=== PATIENT | female | born 1980 ===

== ENCOUNTER 2020-08-01 19:23 | Outpatient (CLI) | payer MEDICAID ==
[2020-08-01 20:11] VITALS: BP 126/64
[2020-08-01] MEDS ORDERED: BETAMET ACET/BETAMET NA PH 6 MG/ML INJ 5 ML MDV IM ONE (21:00)
== END 2020-08-01 20:40 | disposition home or self-care (01) ==
LOC: TRG 19:23 → APU 19:50 → TRG 20:40
PROVIDERS: ATTEND Obstetrics & Gynecology
DX: O47.02 False labor before 37 completed weeks of gestation, second trimester (principal); Z3A.26 26 weeks gestation of pregnancy
CPT/HCPCS: 59025; 96372; J0702

== ENCOUNTER 2020-08-02 20:04 | Outpatient (CLI) | payer MEDICAID ==
[2020-08-02 20:24] VITALS: BP 128/60
[2020-08-02] MEDS ORDERED: BETAMET ACET/BETAMET NA PH 6 MG/ML INJ 5 ML MDV IM ONE (20:45)
== END 2020-08-02 20:32 | disposition home or self-care (01) ==
LOC: TRG 20:04 → APU 20:07 → TRG 20:32
PROVIDERS: ATTEND Obstetrics & Gynecology
DX: O47.02 False labor before 37 completed weeks of gestation, second trimester (principal); Z3A.26 26 weeks gestation of pregnancy
CPT/HCPCS: 59025; 96372; J0702

== ENCOUNTER 2022-04-08 14:10 | Inpatient (IN) | payer MEDICAID ==
[2022-04-08 16:17] LABS: Mucus,Urine FEW /HPF; WBC,Urine < 1.0 /HPF (0.0-6.0)
[2022-04-08 17:03] LABS: Color,Urine Straw (Yellow)
[2022-04-08] MEDS ORDERED: ACETAMINOPHEN 325 MG TAB PO PRN (20:44)
[2022-04-08] MEDS ORDERED: DOCUSATE SODIUM 100 MG CAP PO PRN (20:44)
[2022-04-08] MEDS ORDERED: ZOLPIDEM 5 MG TAB PO PRN (20:51)
[2022-04-08] MEDS ORDERED: BUTORPHANOL 2 MG/1 ML INJ IV PRN (20:51)
[2022-04-08] MEDS: AMPICILLIN/NS 2 GM/100 ML 2 GM/100 ML BAG IV SCH (21:44)
[2022-04-08] MEDS: LACTATED RINGERS 1,000 ML IV SCH (21:45)
[2022-04-09] MEDS: ERYTHROMYCIN LACTOBIONATE 250 MG in SODIUM CHLORIDE 0.9% 100 ML IV SCH ×4 (02:16→20:53)
[2022-04-09] MEDS: AMPICILLIN/NS 2 GM/100 ML 2 GM/100 ML BAG IV SCH ×4 (04:17→21:58)
--- NOTE | 2022-04-09 07:53 | History and Physical Report ---
History of Present Illness Date of examination: 04/09/22 Date of admission: 04/08/22 20:45 Chief complaint: "I think I have been leaking" History of present illness: Pt is a 42 year old female CANDICE 08/18/22 at 21w2d who presents with leakage of fluid since "Thursday or Thursday" April 04 or . She has a history of PPROM and x 2, with Renetta ordered but not yet initiated. She had an ultrasound at [facility] on 04/01/22 where she was noted to have funneling and a cervical length of 1.58 cm, subsequent transvaginal ultrasound that revealed no cervical length, and speculum exam with cervix 2-3 cm dilated with bulging membranes. The patient then underwent rescue cerclage on 04/02/22. She has had care at [facility] since 12 wks with comanagement by [facility] secondary to morbid obesity, h/o PPROM and delivery x 2, advanced maternal age, previous x 3, newly diagnosed gestational diabetes, h/o gastric sleeve, intermediate allele for fragile x syndrome, and desires tubal ligation, consent signed 04/08/22. Her GBS status is unknown. ROM plus testing was positive when she was evaluated in triage and she was started on latency antibiotics. Past History Past Medical History: diabetes (gestational diabetes, recently diagnosed ), other (morbid obesity ) Past Surgical History: cholecystectomy, gastric bypass, section (x 3), D&C Social history: no significant social history - Obstetrical History Expected Date of Delivery: 08/18/22 Actual Gestation: 21 Week(s) 2 Day(s) : 6 Para: 4 Hx # Term Pregnancies: 2 Number of Pregnancies: 2 Spontaneous Abortions: 1 Induced : 0 Number of Living Children: 4 Medications and Allergies Allergies Allergy/AdvReac Type Severity Reaction Status Date / Time No Known Allergies Allergy Unverified 08/01/20 20:11 Home Medications Medication Instructions Recorded Confirmed Last Taken Type Vit-Fe Fumar-FA [ 1 tab PO DAILY 10/20/20 10/20/20 Unknown History Vitamin] Ibuprofen [Motrin] 800 mg PO Q8HR PRN #60 tablet 10/22/20 Unknown Rx oxyCODONE /ACETAMINOPHEN [Percocet 1 tab PO Q6HR PRN #30 tablet 10/22/20 Unknown Rx 5/325] Active Meds: Active Medications Acetaminophen (Acetaminophen 325 Mg Tab) 650 mg PO Q4H PRN PRN Reason: Pain MILD(1-3)/Fever >100.5/WU Butorphanol Tartrate (Butorphanol 2 Mg/1 Ml Inj) 1 mg IV Q2H PRN PRN Reason: Labor Pain Docusate Sodium (Docusate Sodium 100 Mg Cap) 100 mg PO Q12H PRN PRN Reason: Constipation Lactated Ringer's (Lactated Ringers) 1,000 mls @ 125 mls/hr IV DIRECT JONATHAN Last Admin: 04/08/22 21:45 Dose: 125 mls/hr Erythromycin Lactobionate 250 (mg/ Sodium Chloride) 100 mls @ 100 mls/hr IV Q6H JONATHAN; Protocol Stop: 04/10/22 20:59 Last Admin: 04/09/22 02:16 Dose: 100 mls/hr Ampicillin Sodium (Ampicillin/Ns 2 Gm/100 Ml) 2 gm in 100 mls @ 100 mls/hr IV Q6H JONATHAN; Protocol Stop: 04/10/22 15:59 Last Admin: 04/09/22 04:17 Dose: 100 mls/hr Multivitamins/Iron/Calcium ( Wze00-Cx Fumarate-Folic Acid Vit Tab) 1 each PO QDAY JONATHAN Zolpidem Tartrate (Zolpidem 5 Mg Tab) 5 mg PO QHS PRN PRN Reason: Sleep Review of Systems All systems: negative - Vital Signs Vital signs: Vital Signs Pulse Pulse Ox 87 98 04/08/22 14:49 04/08/22 14:49 Temp Pulse Resp BP Pulse Ox 98.1 F 98 H 14 115/55 97 04/09/22 06:31 04/09/22 07:45 04/09/22 06:31 04/09/22 06:31 04/09/22 07:45 - Physical Exam Breasts: Positive: deferred Abdomen: Positive: soft (obese, gravid ) Uterus: Positive: enlarged (gravid ) Extremities: Positive: normal Results Abnormal lab results 04/08/22 Range/Units Unknown Membranes Rupture Positive A (Negative) All other labs normal. Assessment and Plan A: IUP at 21w2d PPROM since 04/04 or 04/05, on latency antibiotics Rescue Cerclage in place, placed 04/02/22 AMA Morbid Obesity h/o PPROM and delivery Previous x 3 h/o gastric sleeve Intermediate allele for fragile x syndrome Desires tubal ligation, consent signed 04/08/22. GBS status unknown P: Admit for observation IV antibiotics for latency Q shift FHTs MFM consult
[2022-04-09] MEDS: PRENATAL VIT27-FE FUMARATE-FOLIC ACID VIT TAB PO SCH (09:52)
[2022-04-09 16:18] LABS: Hematocrit 34.2 % (30.3-42.9); Hemoglobin 11.4 gm/dl (10.1-14.3); Mean Corpuscular HGB Conc 33 % (30-34); Mean Corpuscular Volume 94 fl (79-97); Platelet Count 232 K/mm3 (140-440); Red Blood Count 3.64 M/mm3 (3.65-5.03); Red Cell Distribution Width 14.2 % (13.2-15.2)
--- NOTE | 2022-04-09 17:52 | Consultation ---
History of Present Illness Consult date: 04/09/22 Reason for consult: PROM History of present illness: 42YO EGA 21w3d admitted S/P SROM in the setting of a cervical incompetence with rescue cerclage last week. She presents without complaints. She denies any fever, chills, contractions, odor, abdominal tenderness, or cramping pains. She reports good activity. She was recently diagnosed with GDM. Limited fingersticks show good control She has a history of X 3. Past History Past Medical History: diabetes (gestational diabetes, recently diagnosed ), other (morbid obesity ) Past Surgical History: cholecystectomy, gastric bypass, section (x 3), D&C - Obstetrical History : 7 Hx # Term Pregnancies: 2 Number of Pregnancies: 2 Spontaneous Abortions: 2 Number of Living Children: 4 Medications and Allergies Allergies Allergy/AdvReac Type Severity Reaction Status Date / Time No Known Allergies Allergy Unverified 08/01/20 20:11 Home Medications Medication Instructions Recorded Confirmed Last Taken Type Vit-Fe Fumar-FA [ 1 tab PO DAILY 10/20/20 10/20/20 Unknown History Vitamin] Ibuprofen [Motrin] 800 mg PO Q8HR PRN #60 tablet 10/22/20 Unknown Rx oxyCODONE /ACETAMINOPHEN [Percocet 1 tab PO Q6HR PRN #30 tablet 10/22/20 Unknown Rx 5/325] Active Meds: Active Medications Acetaminophen (Acetaminophen 325 Mg Tab) 650 mg PO Q4H PRN PRN Reason: Pain MILD(1-3)/Fever >100.5/WU Butorphanol Tartrate (Butorphanol 2 Mg/1 Ml Inj) 1 mg IV Q2H PRN PRN Reason: Labor Pain Docusate Sodium (Docusate Sodium 100 Mg Cap) 100 mg PO Q12H PRN PRN Reason: Constipation Lactated Ringer's (Lactated Ringers) 1,000 mls @ 125 mls/hr IV DIRECT JONATHAN Last Admin: 04/08/22 21:45 Dose: 125 mls/hr Erythromycin Lactobionate 250 (mg/ Sodium Chloride) 100 mls @ 100 mls/hr IV Q6H JONATHAN; Protocol Stop: 04/10/22 20:59 Last Admin: 04/09/22 14:38 Dose: 100 mls/hr Ampicillin Sodium (Ampicillin/Ns 2 Gm/100 Ml) 2 gm in 100 mls @ 100 mls/hr IV Q6H [facility]; Protocol Stop: 04/10/22 15:59 Last Admin: 04/09/22 15:47 Dose: 100 mls/hr Multivitamins/Iron/Calcium ( Oii43-Ge Fumarate-Folic Acid Vit Tab) 1 each PO QDAY JONATHAN Last Admin: 04/09/22 09:52 Dose: 1 each Zolpidem Tartrate (Zolpidem 5 Mg Tab) 5 mg PO QHS PRN PRN Reason: Sleep Review of Systems All systems: negative - Vital Signs Vital signs: Vital Signs Pulse Pulse Ox 87 98 04/08/22 14:49 04/08/22 14:49 Temp Pulse Resp BP Pulse Ox 98.1 F 79 14 110/56 96 04/09/22 06:31 04/09/22 17:49 04/09/22 06:31 04/09/22 12:08 04/09/22 17:49 Results Result Diagrams: 04/09/22 15:51 Abnormal lab results 04/09/22 Range/Units 15:51 RBC 3.64 L (3.65-5.03) M/mm3 All other labs normal. Assessment and Plan IMPRESSIONS: 1. IUP 21w3d 2. SROM 3. Failed rescue cerclage 4. Recent diagnosis of GDM 5. AMA - NIPT resulted low risk 6. Morbid obesity 7. Previous X 3 - No previa 8. Interested in option of outpatient surveillance until 23-24 weeks 9. On latency antibiotics RECOMMENDATIONS: 1. I agree with present management 2. IV antibiotics X 48 hrs, followed by PO to complete 1 week course 3. If patient desires outpatient surveillance, she should have weekly [facility] follow-up and perform daily temp checks 4. Monitor fingerstick BS as FBS, 2-hr PP, and HS 5. Obtain nutritional consult and diabetic education 6. Allow cerclage to remain in situ unless indications for removal 7. BMZ @ 24 weeks, with MgSO4 8. Deliver at 34 weeks, or for usual indications 9. BPP 1-2 times weekly at 24 weeks, with growth q 3-4 weeks 10. Follow-up cultures/lab results 11. [facility] will follow-up as requested
[2022-04-10] MEDS: ERYTHROMYCIN LACTOBIONATE 250 MG in SODIUM CHLORIDE 0.9% 100 ML IV SCH ×4 (02:19→20:18)
[2022-04-10] MEDS: AMPICILLIN/NS 2 GM/100 ML 2 GM/100 ML BAG IV SCH ×3 (03:29→15:49)
--- NOTE | 2022-04-10 08:01 | Progress Note ---
Assessment and Plan - Patient Problems (1) premature rupture of membranes Current Visit: Yes Status: Acute Plan to address problem: Patient's IV antibiotics were initiated on the at approximately 2100 Will continue antibiotics for 48 hours Plan discharge in a.m. on p.o. antibiotics Subjective - Subjective Date of service: 04/10/22 Interval history: 42-year-old -2-2-4 at 21+4 weeks admitted for PPROM with a cerclage in place. The patient has remained afebrile. Plan of care is to complete 48 hours of IV antibiotics and transition to p.o. antibiotics. She currently denies any vaginal bleeding or contractions. Patient reports: loss of fluid, no new complaints, no vaginal bleeding Objective - Vital Signs Vital Signs: Vital Signs - 12hr 04/09/22 04/09/22 04/09/22 20:01 20:06 20:11 Temperature Pulse Rate 80 81 79 Respiratory Rate Blood Pressure Blood Pressure [Left] O2 Sat by Pulse 97 97 97 Oximetry 04/09/22 04/09/22 04/09/22 20:16 20:21 20:26 Temperature Pulse Rate 91 H 78 82 Respiratory Rate Blood Pressure Blood Pressure [Left] O2 Sat by Pulse 98 97 96 Oximetry 04/09/22 04/09/22 04/09/22 20:31 20:36 20:52 Temperature Pulse Rate 83 84 95 H Respiratory Rate Blood Pressure Blood Pressure [Left] O2 Sat by Pulse 97 97 98 Oximetry 04/09/22 04/09/22 04/09/22 20:57 21:02 21:07 Temperature Pulse Rate 100 H 91 H 79 Respiratory Rate Blood Pressure Blood Pressure [Left] O2 Sat by Pulse 97 96 97 Oximetry 04/09/22 04/09/22 04/09/22 21:12 21:17 21:22 Temperature Pulse Rate 79 81 92 H Respiratory Rate Blood Pressure Blood Pressure [Left] O2 Sat by Pulse 96 98 96 Oximetry 04/09/22 04/09/22 04/09/22 21:27 21:32 21:37 Temperature Pulse Rate 79 91 H 76 Respiratory Rate Blood Pressure Blood Pressure [Left] O2 Sat by Pulse 96 95 96 Oximetry 04/09/22 04/09/22 04/09/22 21:42 21:47 21:52 Temperature Pulse Rate 78 73 78 Respiratory Rate Blood Pressure Blood Pressure [Left] O2 Sat by Pulse 96 97 96 Oximetry 04/09/22 04/09/22 04/09/22 21:57 22:02 22:07 Temperature Pulse Rate 94 H 96 H 87 Respiratory Rate Blood Pressure Blood Pressure [Left] O2 Sat by Pulse 97 97 97 Oximetry 04/09/22 04/09/22 04/09/22 22:13 22:17 22:23 Temperature Pulse Rate 100 H 84 83 Respiratory Rate Blood Pressure Blood Pressure [Left] O2 Sat by Pulse 97 96 96 Oximetry 04/09/22 04/09/22 04/09/22 22:27 22:32 22:38 Temperature Pulse Rate 81 82 94 H Respiratory Rate Blood Pressure Blood Pressure [Left] O2 Sat by Pulse 96 97 98 Oximetry 04/09/22 04/09/22 04/09/22 22:43 22:47 22:52 Temperature Pulse Rate 75 75 76 Respiratory Rate Blood Pressure Blood Pressure [Left] O2 Sat by Pulse 95 98 96 Oximetry 04/09/22 04/09/22 04/09/22 22:58 23:06 23:10 Temperature Pulse Rate 100 H 88 78 Respiratory Rate Blood Pressure Blood Pressure [Left] O2 Sat by Pulse 97 96 96 Oximetry 04/09/22 04/09/22 04/09/22 23:16 23:21 23:26 Temperature Pulse Rate 80 94 H 79 Respiratory Rate Blood Pressure Blood Pressure [Left] O2 Sat by Pulse 97 98 97 Oximetry 04/09/22 04/09/22 04/09/22 23:29 23:30 23:31 Temperature 97.8 F Pulse Rate 97 H 86 81 Respiratory 14 Rate Blood Pressure 102/55 Blood Pressure 102/55 [Left] O2 Sat by Pulse 98 98 Oximetry 04/09/22 04/09/22 04/09/22 23:36 23:41 23:45 Temperature Pulse Rate 81 82 77 Respiratory Rate Blood Pressure Blood Pressure [Left] O2 Sat by Pulse 97 96 96 Oximetry 04/09/22 04/09/22 04/10/22 23:51 23:55 00:01 Temperature Pulse Rate 88 85 71 Respiratory Rate Blood Pressure Blood Pressure [Left] O2 Sat by Pulse 96 96 95 Oximetry 04/10/22 04/10/22 04/10/22 00:06 00:11 00:16 Temperature Pulse Rate 70 81 80 Respiratory Rate Blood Pressure Blood Pressure [Left] O2 Sat by Pulse 96 93 95 Oximetry 04/10/22 04/10/22 04/10/22 00:21 00:26 00:31 Temperature Pulse Rate 80 79 84 Respiratory Rate Blood Pressure Blood Pressure [Left] O2 Sat by Pulse 94 95 93 Oximetry 04/10/22 04/10/22 04/10/22 00:36 00:41 00:46 Temperature Pulse Rate 77 75 81 Respiratory Rate Blood Pressure Blood Pressure [Left] O2 Sat by Pulse 96 96 95 Oximetry 04/10/22 04/10/22 04/10/22 00:50 00:58 01:03 Temperature Pulse Rate 78 101 H 68 Respiratory Rate Blood Pressure Blood Pressure [Left] O2 Sat by Pulse 96 97 96 Oximetry 04/10/22 04/10/22 04/10/22 01:08 01:13 01:18 Temperature Pulse Rate 66 70 68 Respiratory Rate Blood Pressure Blood Pressure [Left] O2 Sat by Pulse 96 96 96 Oximetry 04/10/22 04/10/22 04/10/22 01:23 01:28 01:33 Temperature Pulse Rate 68 71 73 Respiratory Rate Blood Pressure Blood Pressure [Left] O2 Sat by Pulse 96 96 96 Oximetry 04/10/22 04/10/22 04/10/22 01:38 01:43 01:48 Temperature Pulse Rate 72 71 99 H Respiratory Rate Blood Pressure Blood Pressure [Left] O2 Sat by Pulse 96 96 96 Oximetry 04/10/22 04/10/22 04/10/22 01:53 01:58 02:03 Temperature Pulse Rate 68 68 71 Respiratory Rate Blood Pressure Blood Pressure [Left] O2 Sat by Pulse 96 96 96 Oximetry 04/10/22 04/10/22 04/10/22 02:08 02:13 02:18 Temperature Pulse Rate 72 71 78 Respiratory Rate Blood Pressure Blood Pressure [Left] O2 Sat by Pulse 96 96 96 Oximetry 04/10/22 04/10/22 04/10/22 02:23 02:28 02:33 Temperature Pulse Rate 81 79 76 Respiratory Rate Blood Pressure Blood Pressure [Left] O2 Sat by Pulse 97 97 97 Oximetry 04/10/22 04/10/22 04/10/22 02:38 02:43 02:48 Temperature Pulse Rate 70 74 73 Respiratory Rate Blood Pressure Blood Pressure [Left] O2 Sat by Pulse 97 96 96 Oximetry 04/10/22 04/10/22 04/10/22 02:53 02:58 03:03 Temperature Pulse Rate 72 74 73 Respiratory Rate Blood Pressure Blood Pressure [Left] O2 Sat by Pulse 96 96 97 Oximetry 04/10/22 04/10/22 04/10/22 03:08 03:13 03:18 Temperature Pulse Rate 70 68 73 Respiratory Rate Blood Pressure Blood Pressure [Left] O2 Sat by Pulse 96 97 97 Oximetry 04/10/22 04/10/22 04/10/22 03:23 03:28 03:30 Temperature 97.5 F L Pulse Rate 71 88 93 H Respiratory 14 Rate Blood Pressure Blood Pressure 116/66 [Left] O2 Sat by Pulse 97 98 98 Oximetry 04/10/22 04/10/22 04/10/22 03:32 03:33 03:38 Temperature Pulse Rate 86 80 82 Respiratory Rate Blood Pressure 116/66 Blood Pressure [Left] O2 Sat by Pulse 99 99 Oximetry 04/10/22 04/10/22 04/10/22 03:43 03:48 03:58 Temperature Pulse Rate 85 87 95 H Respiratory Rate Blood Pressure Blood Pressure [Left] O2 Sat by Pulse 98 98 97 Oximetry 04/10/22 04/10/22 04/10/22 04:03 04:08 04:13 Temperature Pulse Rate 78 78 94 H Respiratory Rate Blood Pressure Blood Pressure [Left] O2 Sat by Pulse 97 97 95 Oximetry 04/10/22 04/10/22 04/10/22 04:18 04:23 04:28 Temperature Pulse Rate 75 80 73 Respiratory Rate Blood Pressure Blood Pressure [Left] O2 Sat by Pulse 96 97 97 Oximetry 04/10/22 04/10/22 04/10/22 04:33 04:38 04:43 Temperature Pulse Rate 72 79 78 Respiratory Rate Blood Pressure Blood Pressure [Left] O2 Sat by Pulse 97 96 96 Oximetry 04/10/22 04/10/22 04/10/22 04:48 04:53 04:58 Temperature Pulse Rate 72 71 79 Respiratory Rate Blood Pressure Blood Pressure [Left] O2 Sat by Pulse 95 95 91 Oximetry 04/10/22 04/10/22 04/10/22 05:03 05:08 05:13 Temperature Pulse Rate 69 76 84 Respiratory Rate Blood Pressure Blood Pressure [Left] O2 Sat by Pulse 98 95 99 Oximetry 04/10/22 04/10/22 04/10/22 05:18 05:23 05:28 Temperature Pulse Rate 78 79 74 Respiratory Rate Blood Pressure Blood Pressure [Left] O2 Sat by Pulse 98 97 98 Oximetry 04/10/22 04/10/22 04/10/22 05:33 05:38 05:43 Temperature Pulse Rate 73 73 72 Respiratory Rate Blood Pressure Blood Pressure [Left] O2 Sat by Pulse 97 96 96 Oximetry 04/10/22 04/10/22 04/10/22 05:48 05:53 05:58 Temperature Pulse Rate 79 72 82 Respiratory Rate Blood Pressure Blood Pressure [Left] O2 Sat by Pulse 97 97 97 Oximetry 04/10/22 04/10/22 04/10/22 06:03 06:08 06:13 Temperature Pulse Rate 90 71 97 H Respiratory Rate Blood Pressure Blood Pressure [Left] O2 Sat by Pulse 97 96 96 Oximetry 04/10/22 04/10/22 04/10/22 06:15 06:16 06:18 Temperature 97.6 F Pulse Rate 88 86 91 H Respiratory 16 Rate Blood Pressure 109/68 Blood Pressure 109/68 [Left] O2 Sat by Pulse 98 98 Oximetry 04/10/22 04/10/22 04/10/22 06:23 06:28 06:33 Temperature Pulse Rate 78 75 75 Respiratory Rate Blood Pressure Blood Pressure [Left] O2 Sat by Pulse 97 97 97 Oximetry 04/10/22 04/10/22 04/10/22 06:38 06:43 06:48 Temperature Pulse Rate 73 72 82 Respiratory Rate Blood Pressure Blood Pressure [Left] O2 Sat by Pulse 96 96 97 Oximetry 04/10/22 04/10/22 04/10/22 06:53 06:58 07:03 Temperature Pulse Rate 80 84 90 Respiratory Rate Blood Pressure Blood Pressure [Left] O2 Sat by Pulse 97 99 97 Oximetry 04/10/22 04/10/22 07:08 07:13 Temperature Pulse Rate 79 89 Respiratory Rate Blood Pressure Blood Pressure [Left] O2 Sat by Pulse 97 99 Oximetry - Labs Labs: Abnormal Labs 04/08/22 04/09/22 Unknown 15:51 RBC 3.64 L Membranes Rupture Positive A Laboratory Results - last 24 hr 04/09/22 04/09/22 04/09/22 11:03 12:10 14:52 WBC RBC Hgb Hct MCV MCH MCHC RDW Plt Count POC Glucose 81 89 SARS-CoV-2 (PCR) Negative Blood Type Antibody Screen 04/09/22 04/09/22 04/09/22 15:40 15:51 19:33 WBC 9.8 RBC 3.64 L Hgb 11.4 Hct 34.2 MCV 94 MCH 31 MCHC 33 RDW 14.2 Plt Count 232 POC Glucose 103 SARS-CoV-2 (PCR) Blood Type O POSITIVE Antibody Screen Negative 04/10/22 06:14 WBC RBC Hgb Hct MCV MCH MCHC RDW Plt Count POC Glucose 94 SARS-CoV-2 (PCR) Blood Type Antibody Screen
[2022-04-10] MEDS: PRENATAL VIT27-FE FUMARATE-FOLIC ACID VIT TAB PO SCH (12:03)
--- NOTE | 2022-04-10 23:18 | Ultrasound Report ---
Limited OB ultrasound INDICATION: Premature rupture FINDINGS: Single live anterior in breech position. SANDI measures 9.6 cm. Placenta is anterio r grade 1. heart rate is 1 41 bpm. There is a complex which extends into the region of the cerv ix. IMPRESSION: Single live intrauterine in breech position. There is a foot which extends into the cervix with cervical length measuring 0 cm. Fluid signal is seen within the cervical canal measuring 2.1 cm. Signer Name: Romeo Guy MD Signed: 04/10/2022 11:13 PM Workstation Name: [id number]
[2022-04-11] MEDS: LACTATED RINGERS 1,000 ML IV SCH (05:52)
--- NOTE | 2022-04-11 07:56 | Progress Note ---
Assessment and Plan - Patient Problems (1) premature rupture of membranes Current Visit: Yes Status: Acute Plan to address problem: clinically stable discharge home Subjective - Subjective Date of service: 04/11/22 Interval history: 42-year-old -2-2-4 at 21+5 weeks admitted for PPROM with a cerclage in place. Patient is without complaints. She denies any vaginal bleeding or contractions. She has completed her IV antibiotic regimen Patient reports: loss of fluid, no new complaints, no vaginal bleeding Objective - Vital Signs Vital Signs: Vital Signs - 12hr 04/10/22 04/10/22 04/10/22 20:13 20:14 20:17 Temperature 98.1 F Pulse Rate 78 84 Respiratory 14 Rate Blood Pressure 111/71 Blood Pressure 111/71 [Left] O2 Sat by Pulse 98 98 Oximetry O2 Sat by Pulse 98 Oximetry [ Bilateral] 04/11/22 04/11/22 04/11/22 04:07 04:08 04:09 Temperature 97.7 F Pulse Rate 90 87 83 Respiratory 16 Rate Blood Pressure 109/57 Blood Pressure [Left] O2 Sat by Pulse 99 97 Oximetry O2 Sat by Pulse Oximetry [ Bilateral] - Labs Labs: Abnormal Labs 04/08/22 04/09/22 04/10/22 Unknown 15:51 10:51 RBC 3.64 L POC Glucose 116 H Membranes Rupture Positive A Laboratory Results - last 24 hr 04/10/22 04/10/22 04/10/22 10:51 13:43 20:05 POC Glucose 116 H 86 71 04/11/22 05:45 POC Glucose 101
--- NOTE | 2022-04-11 07:58 | Discharge Summary ---
Providers - Providers Date of Admission: 04/08/22 20:45 Date of discharge: 04/11/22 Attending physician: MALIKA REAGAN 04/09/22 07:53 Consult to Physician [CONS] Routine Comment: Consulting Provider: MARINA CAMARENA Physician Instructions: Reason For Exam: IUP at 21w2d, PPROM, Cervical Incompetence Primary care physician: MALIKA REAGAN Hospitalization Reason for admission: rupture of membranes Discharge diagnosis: other (PPROM) Hospital course: Patient admitted for PPROM at 21 weeks. Cerclage remains in place. The patient received IV antibiotics and remained afebrile and stable Condition at discharge: Fair Disposition: 01 HOME / SELF CARE / HOMELESS - Discharge Diagnoses (1) premature rupture of membranes Status: Acute Plan - Discharge Medications Prescriptions: RX: Erythromycin Base [Erythromycin 250MG CAP DR] 250 mg PO Q8H #21 Amoxicillin [Trimox CAP] 500 mg PO Q8H #21 capsule - Provider Discharge Summary Activity: no heavy lifting 4 weeks, other (No sex or activities for duration of ) Additional instructions: [] Smoking cessation referral if applicable(refer to patient education folder for contact #) [] Refer to [facility] Booklet Call your doctor immediately for: * Fever > 100.5 * Heavy vaginal bleeding ( >1 pad per hour) * Severe persistent headache * Shortness of breath * Reddened, hot, painful area to leg or breast * patient has scheduled followup with Dr Reagan and KARISHMA - Follow up plan
[2022-04-11] MEDS ORDERED: ACETAMINOPHEN 325 MG TAB PO PRN (08:00)
[2022-04-11] MEDS ORDERED: DOCUSATE SODIUM 100 MG CAP PO PRN (08:00)
[2022-04-11 08:25] VITALS: BP 126/61
[2022-04-11] MEDS ORDERED: PRENATAL VIT27-FE FUMARATE-FOLIC ACID VIT TAB PO SCH (10:00)
== END 2022-04-11 08:57 | disposition home or self-care (01) | DRG 781 ==
LOC: TRG 14:10 → APU 14:12 → LD 20:44 → APU 20:44 → TRG 20:44 → LD 20:45 → OBSVTOIN 20:45 → LD 04-09 10:32
PROVIDERS: ADMIT Obstetrics & Gynecology; ATTEND Obstetrics & Gynecology
DX: O42.912 Preterm premature rupture of membranes, unspecified as to length of time between rupture and onset of labor, second trimester (principal); O24.419 Gestational diabetes mellitus in pregnancy, unspecified control; E66.01 Morbid (severe) obesity due to excess calories; Z20.822 Contact with and (suspected) exposure to COVID-19; Z3A.21 21 weeks gestation of pregnancy; O99.212 Obesity complicating pregnancy, second trimester; O34.211 Maternal care for low transverse scar from previous cesarean delivery; O60.02 Preterm labor without delivery, second trimester
CPT/HCPCS: 36415; 76815; 81001; 82962; 84112; 85027; 86850; 86900; 86901; G0378; J0290; J1364; J7120; U0003

== ENCOUNTER 2022-04-19 16:07 | Outpatient (CLI) | payer MEDICAID ==
[2022-04-19 17:37] VITALS: BP 130/64
--- NOTE | 2022-04-19 17:38 | Ultrasound Report ---
ULTRASOUND OBSTETRIC LIMITED INDICATION / CLINICAL INFORMATION: RUPTURED MEMBRANES - SANDI. - Clinical Gestational Age (GA) in weeks, days: TECHNIQUE: Transabdominal. COMPARISON: None available. FINDINGS: HEART RATE (beats per minute): 161 AMNIOTIC FLUID INDEX (cm) = 0 (normal = 7-24 cm) PRESENTATION: Breech. ADDITIONAL FINDINGS: None. IMPRESSION: Oligohydramnios with amniotic fluid index of 0. Signer Name: Juve Frausto MD Signed: 04/19/2022 5:34 PM Workstation Name: [id number]
[2022-04-19] MEDS ORDERED: LACTATED RINGERS 500 ML IV ONE (17:43)
== END 2022-04-19 17:52 | disposition home or self-care (01) ==
LOC: APU 16:07 → TRG 16:07
PROVIDERS: ATTEND Obstetrics & Gynecology
DX: O41.02X0 Oligohydramnios, second trimester, not applicable or unspecified (principal); Z3A.23 23 weeks gestation of pregnancy
CPT/HCPCS: 59025; 76801; 76815

== ENCOUNTER 2022-04-22 17:01 | Inpatient (IN) | payer MEDICAID ==
[2022-04-22] MEDS ORDERED: ACETAMINOPHEN 325 MG TAB PO PRN (17:24)
[2022-04-22] MEDS ORDERED: SIMETHICONE 80 MG CHEW TAB PO PRN (17:24)
[2022-04-22] MEDS ORDERED: DOCUSATE SODIUM 100 MG CAP PO PRN (17:24)
[2022-04-22] MEDS ORDERED: SODIUM CHLORIDE NASAL SPRAY 44ML NS PRN (17:24)
[2022-04-22] MEDS ORDERED: SENNOSIDES/DOCUSATE SODIUM 8.6/50 MG TAB PO PRN (17:24)
[2022-04-22] MEDS ORDERED: diphenhydrAMINE 25 MG CAP PO PRN (17:24)
[2022-04-22] MEDS ORDERED: ONDANSETRON 4 MG/2 ML INJ IV PRN (17:24)
[2022-04-22] MEDS ORDERED: LACTATED RINGERS 1,000 ML IV SCH ×2 (17:30→19:45)
[2022-04-22] MEDS ORDERED: DEXTROSE 50% IN WATER (25GM) 50 ML SYRINGE IV PRN (17:39)
[2022-04-22] MEDS ORDERED: INSULIN REGULAR, HUMAN 100 UNITS/1 ML SUB-Q PRN (17:39)
[2022-04-22] MEDS ORDERED: fentaNYL 100 MCG/2 ML INJ ONE ×3 (19:26→22:26)
[2022-04-22] MEDS ORDERED: FAMOTIDINE 20 MG/2 ML INJ IV ONE (19:34)
[2022-04-22] MEDS ORDERED: METOCLOPRAMIDE 10 MG/2 ML INJ IV ONE (19:34)
[2022-04-22] MEDS ORDERED: BICITRA ORAL LIQD 30ML PO ONE (19:34)
[2022-04-22] MEDS ORDERED: SODIUM CHLORIDE 0.9% 500 ML 500 ML IV SCH (19:36)
[2022-04-22] MEDS ORDERED: OXYTOCIN DRIP 30,000 MILLIUNITS/500 ML BAG IV ONE (19:39)
[2022-04-22 19:52] LABS: Hematocrit 35.6 % (30.3-42.9); Hemoglobin 11.7 gm/dl (10.1-14.3); Mean Corpuscular HGB Conc 33 % (30-34); Mean Corpuscular Volume 94 fl (79-97); Platelet Count 210 K/mm3 (140-440); Red Blood Count 3.81 M/mm3 (3.65-5.03); Red Cell Distribution Width 13.5 % (13.2-15.2)
[2022-04-22] MEDS ORDERED: AMPICILLIN/NS 2 GM/100 ML 2 GM/100 ML BAG IV SCH (20:00)
[2022-04-22] MEDS ORDERED: BETAMET ACET/BETAMET NA PH 6 MG/ML INJ 5 ML MDV IM SCH (20:00)
[2022-04-22] MEDS ORDERED: ERYTHROMYCIN LACTOBIONATE 250 MG in SODIUM CHLORIDE 0.9% 100 ML IV SCH (20:00)
[2022-04-22] MEDS ORDERED: ceFAZolin/Water 2 GM/20 ML 2 GM/20 ML SYRINGE IV SCH (20:00)
[2022-04-22] MEDS ORDERED: miSOPROStol 200 MCG TAB ONE (20:26)
[2022-04-22] MEDS ORDERED: WATER FOR IRRIG STERILE 1,500 ML BOTTLE IR ONE (20:28)
[2022-04-22] MEDS ORDERED: SODIUM CHLORIDE 0.9% IRR 1,500 ML BOTTLE IR ONE (20:28)
--- NOTE | 2022-04-22 20:33 | Ultrasound Report ---
US OB limited INDICATION / CLINICAL INFORMATION: Vaginal bleeding; FHR. COMPARISON: 3 days FINDINGS: 2 images were obtained. heart rate ranges from 177-190. lie is breech. IMPRESSION: 1. Limited study. heart rate ranges from 177-190. lie remains breech. Signer Name: Logan Rodriguez MD Signed: 04/22/2022 8:29 PM Workstation Name: [id number]
[2022-04-22] MEDS ORDERED: ONDANSETRON 4 MG/2 ML INJ ONE (20:48)
[2022-04-22] MEDS ORDERED: LACTATED RINGERS 1,000 ML ONE (20:48)
[2022-04-22 21:07] LABS: Total Cells Counted 100
[2022-04-22 21:08] LABS: Basophils % (Manual) 0 % (0.0-1.8); Eosinophils % (Manual) 0 % (0.0-4.3); Platelet Estimate Consistent w Auto
[2022-04-22] MEDS ORDERED: BUPIVACAINE/PF (0.25%) 2.5 MG/ML 30 ML VIAL INFILTRATI ONE (21:11)
[2022-04-22] MEDS ORDERED: MIDAZOLAM 2 MG/2 ML INJ ONE (21:53)
[2022-04-22] MEDS ORDERED: KETAMINE/STERILE WATER 50 MG/ML SYRINGE ONE (22:06)
--- NOTE | 2022-04-22 23:14 | History and Physical Report ---
History of Present Illness Date of examination: 04/22/22 Date of admission: 04/22/22 17:24 Chief complaint: "I am here for my steroids" History of present illness: Late entry to due to patient acuity. Pt is a 42 year old female CANDICE 08/18/22 at 23w1d who presents from [facility] appt earlier today for admission. She experienced cervical incompetence noted on 04/01/22 with placement of rescue cerclage on 04/02/22. She was subdequently noted to have experienced PPROM at 21 wks, then received latency antibiotics at that time, and was discharged with plans for readmission at 23 wks for steroids for lung maturity, magnesium sulfate for neuroprotection and NICU consultation. However, the patient reports onset of contractions and vaginal bleeding 30 minutes after she arrived at the hospital. She has had care at [facility] since 12 wks with comanagement by [facility] secondary to the aforementioned issues, morbid obesity, previous x 3, advanced maternal age, h/o PPROM and delivery to two other pregnancies, gestational diabetes, h/o gastric sleeve, intermediate allele for fragile x syndrome, undesired fertility consent signed 04/08/22. Her GBS status is unknown. Past History Past Medical History: diabetes (gestational diaberes ) Past Surgical History: cholecystectomy, gastric bypass, PIANO MOVER/uterine surgery (cerclage ), section (x 3 ), D&C Family/Genetic History: heart disease Social history: no significant social history - Obstetrical History Expected Date of Delivery: 08/18/22 Actual Gestation: 23 Week(s) 2 Day(s) : 7 Para: 4 Hx # Term Pregnancies: 2 Number of Pregnancies: 2 Spontaneous Abortions: 2 Induced : 0 Number of Living Children: 4 Medications and Allergies Allergies Allergy/AdvReac Type Severity Reaction Status Date / Time No Known Allergies Allergy Unverified 08/01/20 20:11 Home Medications Medication Instructions Recorded Confirmed Last Taken Type Vit-Fe Fumar-FA [ 1 tab PO DAILY 10/20/20 10/20/20 Unknown History Vitamin] Ibuprofen [Motrin] 800 mg PO Q8HR PRN #60 tablet 10/22/20 Unknown Rx oxyCODONE /ACETAMINOPHEN [Percocet 1 tab PO Q6HR PRN #30 tablet 10/22/20 Unknown Rx 5/325] Amoxicillin [Trimox CAP] 500 mg PO Q8H #21 capsule 04/11/22 Unknown Rx Erythromycin Base [Erythromycin 250 mg PO Q8H #21 04/11/[address] 250[address] CAP DR] Active Meds: Active Medications Acetaminophen (Acetaminophen 325 Mg Tab) 650 mg PO Q4H PRN PRN Reason: Pain MILD(1-3)/Fever >100.5/WU Amoxicillin (Amoxicillin 250 Mg Cap) 250 mg PO Q8HR JONATHAN; Protocol Stop: 04/29/22 21:59 Betamethasone Acet/Betameth SodPhos (Betamet Acet/Betamet Na Ph 6 Mg/Ml Inj 5 Ml Mdv) 12 mg IM Q24H JONATHAN Stop: 04/23/22 20:01 Last Admin: 04/22/22 19:15 Dose: 12 mg Dextrose (Dextrose 50% In Water (25gm) 50 Ml Syringe) 50 ml IV Q30MIN PRN; Protocol PRN Reason: Hypoglycemia Diphenhydramine HCl (Diphenhydramine 25 Mg Cap) 25 mg PO Q6H PRN PRN Reason: Itching Docusate Sodium (Docusate Sodium 100 Mg Cap) 100 mg PO Q12H PRN PRN Reason: Constipation Erythromycin (Erythromycin Base [address]) 250 mg PO Q8HR JONATHAN; Protocol Stop: 04/29/22 21:59 Lactated Ringer's (Lactated Ringers) 1,000 mls @ 125 mls/hr IV DIRECT JONATHAN Ampicillin Sodium (Ampicillin/Ns 2 Gm/100 Ml) 2 gm in 100 mls @ 100 mls/hr IV Q6H JONATHAN; Protocol Stop: 04/24/22 14:59 Erythromycin Lactobionate 250 (mg/ Sodium Chloride) 100 mls @ 100 mls/hr IV Q6H JONATHAN; Protocol Stop: 04/24/22 14:59 Lactated Ringer's (Lactated Ringers) 1,000 mls @ 2,250 mls/hr IV PREOP JONATHAN Stop: 04/23/22 20:12 Cefazolin Sodium (Ancef/Sterile Water 2 Gm/20 Ml) 2 gm in 20 mls @ 80 mls/hr IV PREOP JONATHAN; Protocol Sodium Chloride (Nacl 0.9% 500 Ml) 500 mls @ 0 mls/hr IV ONCE JONATHAN Insulin Human Regular (Insulin Regular, Human 100 Units/1 Ml) 0 units SUB-Q Q6H PRN; Protocol PRN Reason: Hyperglycemia Multivitamins/Iron/Calcium ( [id number] Fumarate-Folic Acid Vit Tab) 1 each PO QDAY JONATHAN Ondansetron HCl (Ondansetron 4 Mg/2 Ml Inj) 4 mg IV Q6H PRN PRN Reason: Nausea And Vomiting Senna/Docusate Sodium (Sennosides/Docusate Sodium 8.6/50 Mg Tab) 2 tab PO Q12H PRN PRN Reason: Laxative Effect Simethicone (Simethicone 80 Mg Chew Tab) 80 mg PO Q6H PRN PRN Reason: Gas pain Sodium Chloride (Sodium Chloride Nasal [place] 44ml) 2 spray NS Q4H PRN PRN Reason: Congestion Review of Systems All systems: negative - Vital Signs Vital signs: Vital Signs Pulse Pulse Ox 94 H 92 04/22/22 18:46 04/22/22 18:46 Temp Pulse Resp BP Pulse Ox 102 H 108/55 94 04/22/22 19:57 04/22/22 18:50 04/22/22 19:57 - Physical Exam Breasts: Positive: deferred Abdomen: Positive: soft (obese), tenderness Cervix: Positive: other (speculum exam with large clots with active bleeding, cerclage visible amid clots) Uterus: Positive: enlarged (gravid, ) Extremities: Positive: normal - Obstetrical FHR: category 2 Uterine Contraction Monitor Mode: External Uterine Contraction Pattern: Regular Uterine Tone Measurement Phase: Resting Uterine Contraction Intensity: Moderate Results Result Diagrams: 04/23/22 00:01 Abnormal lab results 04/22/22 04/22/22 Range/Units 18:35 18:35 WBC 15.3 H (4.5-11.0) K/mm3 Seg Neuts % (Manual) 98.0 H (40.0-70.0) % Lymphocytes % (Manual) 1.0 L (13.4-35.0) % Seg Neutrophils # Man 15.0 H (1.8-7.7) K/mm3 Lymphocytes # (Manual) 0.2 L (1.2-5.4) K/mm3 Crossmatch See Detail All other labs normal. Assessment and Plan A: IUP at 23w1d PPROM since 04/04 or 8/13, s/p latency antibiotics; Prolonged ROM Rescue Cerclage in place, placed 04/02/22 Vaginal Bleeding concerning for placental abruption AMA Morbid Obesity Gestational Diabetes h/o PPROM and delivery Previous x 3 h/o gastric sleeve Intermediate allele for fragile x syndrome Desires tubal ligation, consent signed 04/08/22. GBS status unknown P: Betamethasone 12 mg IM once now Accuchek now Proceed with repeat section, tubal ligation and other indicated procedures Anesthesia and NICU aware of plan P:
--- NOTE | 2022-04-22 23:14 | Procedure Note ---
OB Delivery Note - Delivery Date of Delivery: 04/23/22 Surgeon: MALIKA MORENO Leak Detector: IAM BANDA Estimated blood loss: other (1561 mL) - Section Preop diagnosis: repeat , desires sterilization, breech, other (placental abrution, malpresentation, oligohydramnios) Postop diagnosis: same section procedure: section, bilateral tubal ligation, other (repeat classical ) Disposition: PACU Complications: intra-op hemorrhage Narrative: Please see operative report - Infant A at 1 minute: 3 at 5 minutes: 5 Gender: Male (530g (1lb 2.6 oz) @ 2051 pm (Apgars 3, 5, and 8))
--- NOTE | 2022-04-22 23:14 | Operative Report ---
Operative Report Operative Report: Date of procedure: April 22, 2022 Preoperative diagnosis: 1) IUP at 23w1d 2) Vaginal Bleeding 3) Malpresentation 4) Previous x 3 5) Morbid Obesity 6) Advanced Maternal Age 7) Gestational Diabetes 8) Undesired Fertility Postoperative diagnosis: Same 9) Intraoperative Hemorrhage 10) Omental Adhesion s Procedure: 1) Repeat classical section 2) Bilateral tubal ligation via Filshie clip method 3) Lysis of adhesions Surgeon: Dalia Reagan M.D. Supervisor Receiving And Processing: Manasa Delatorre M.D. Anesthesia: Regional Findings: 1) Viable male , Apgars 3, 5 and 8, weight 530 g, (1 lb 2.6 oz) in breech presentation. Meconium noted 2) Normal-appearing uterus ovaries and tubes Estimated blood loss: 1561 mL Urine output: 200 mL, clear at the end of the procedure Drains: Abad to gravity Specimens: Placenta to pathology Complications:None. Counts correct x 3 Disposition: Stable to PACU Indication for procedure: Pt is a 42 year old female at 23w1d with h/o PPROM at 21 wks, prolonged rupture of membranes, rescue cerclage in situ, previous x 3, advanced maternal age, morbid obesity, malpresentation presents with heavy vaginal bleeding and regular painful contractions. The decision was made to proceed with section. Operation in detail: After the risks, benefits, alternatives and complications were explained to the patient she gave informed consent for the procedure. She was subsequently taken to the operating room where regional anesthesia was noted to be adequate. She was placed in the dorsal supine position with leftward tilt and prepped and draped in a normal sterile fashion. heart tones were noted prior to incision. A timeout was performed. A Pfannenstiel skin incision was made with the knife and carried down to the layer of the fascia with the Bovie. The fascia was incised in the midline and the fascial incision was extended bilaterally with the Bovie. The fascial incision was then stretched. The rectus muscles were then in the midline and partially transected for adequate visualization. The peritoneum was then entered bluntly. The omentum was noted to be adhesed to the rectus muscles and parietal peritoneum. The peritoneal incision was extended with good visualization of the bladder. The peritoneal incision was then stretched. An Rm retractor was placed. The bladder blade was then placed. A vertical incision was made in the anterior surface of the active segment of the uterus with a knife. The placenta in encountered upon uterine entry. The fetus was noted to be in breech presentation. The head delivered followed by shoulders and body. Cord clamped and cut and handed to NICU staff in attendance. The placenta was then delivered manually. The uterus was then exteriorized and cleared of all clots and debris. The hysterotomy was then reapproximated with 0 Monocryl in a running locked fashion in multiple layers. Additional figure of eights of 3-0 Vicryl were used to obtain hemostasis. The hysterotomy was inspected and hemostasis was noted. Attention was then turned to the tubal ligation. The left tube was identified, grasped with a glenis and followed out to the fimbriae. The tube was occluded with a Filshie clip along the ampullary region of the tube. The right tube was then identified, followed out to the fimbriae and occluded using a Filshie clip. Hemostasis was noted. The gutters were irrigated and cleared of all clots and debris. The hysterotomy was again inspected and noted to be hemostatic. The gutters were irrigated and cleared of all clots and debris. The uterus was placed back into the peritoneal cavity. The hysterotomy was again inspected and noted to be hemostatic. Surgicel was placed over the hysterotomy. The Rm retractor was removed. The fascia was reapproximated with 0 Vicryl in a running fashion. The subcutaneous tissue was reapproximated with 0 Monocryl in a running fashion. The skin was reapproximated with 4-0 Monocryl in a subcuticular fashion. The incision was then covered with steri strips and a pressure dressing. The procedure was then ended. The patient tolerated the procedure well and was taken to the PACU in stable condition. All instrument, lap, and needle counts were correct 3.
[2022-04-23] MEDS ORDERED: HYDROmorphone 1 MG/1 ML INJ IV PRN ×3 (00:07→00:09)
[2022-04-23] MEDS ORDERED: HYDROmorphone 0.5 MG/0.5 ML INJ IV PRN (00:07)
[2022-04-23] MEDS ORDERED: MORPHINE 4 MG/1 ML INJ IV PRN ×2 (00:09→01:53)
[2022-04-23] MEDS ORDERED: ONDANSETRON 4 MG/2 ML INJ IV PRN ×2 (00:09→01:53)
[2022-04-23] MEDS ORDERED: PROMETHAZINE 25 MG RECT SUPP PR PRN (00:09)
[2022-04-23] MEDS ORDERED: NALOXONE 0.4 MG/1 ML INJ IV PRN ×2 (00:09→01:53)
[2022-04-23] MEDS ORDERED: PROMETHAZINE 25 MG TAB PO PRN (00:09)
--- NOTE | 2022-04-23 00:11 | Anesthesia Consultation ---
Anesthesia Consult and Med Hx Date of service: 04/22/22 - Airway Anesthetic Teeth Evaluation: Good ROM Head & Neck: Adequate Mental/Hyoid Distance: Adequate Mallampati Class: Class II Intubation Access Assessment: Probably Good - Pulmonary Exam CTA: Yes - Cardiac Exam Cardiac Exam: RRR - Pre-Operative Health Status ASA Pre-Surgery Classification: ASA2, Emergency Proposed Anesthetic Plan: Spinal Nerve Block: Bj Tap - Pulmonary Hx Smoking: No Hx Asthma: No Hx Respiratory Symptoms: No SOB: No COPD: No Home Oxygen Therapy: No Hx Pneumonia: No Hx Sleep Apnea: No - Cardiovascular System Hx Hypertension: No Hx Coronary Artery Disease: No Hx Heart Attack/AMI: No Hx Angina: No Hx Percutaneous Transluminal Coronary Angioplasty (PTCA): No Hx Cardia Arrhythmia: No Hx Pacemaker: No Hx Internal Defibrillator: No Hx Valvular Heart Disease: No Hx Heart Murmur: No Hx Peripheral Vascular Disease: No - Central Nervous System Hx Neuromuscular Disorder: No Hx Seizures: No CVA: No Hx Back Pain: No Hx Psychiatric Problems: No - Gastrointestinal Hx Ulcer: No Hx Gastroesophageal Reflux Disease: No - Endocrine Hx Renal Disease: No Hx End Stage Renal Disease: No Hx Cirrhosis: No Hx Liver Disease: No Hx Insulin Dependent Diabetes: No Hx Non-Insulin Dependent Diabetes: No Hx Thyroid Disease: No Hx Hypothyroidism: No Hx Hyperthyroidism: No - Hematic Hx Anemia: No Hx Sickle Cell Disease: No - Other Systems Hx Alcohol Use: No Hx Substance Use: No Hx Cancer: No Hx Obesity: Yes
--- NOTE | 2022-04-23 00:11 | Anesthesia Day of Surgery ---
Anesthesia Day of Surgery - Day of Surgery Patient Examined: Yes Patient H&P Reviewed: Yes Patient is NPO: Yes Beta Blockers: No Cardiac Clearance: No Pulmonary Clearance: No Félix's Test: N/A
--- NOTE | 2022-04-23 00:11 | Progress Note ---
Spinal Anesthesia Block - Spinal Anesthesia Block Start Time: 20:10 Stop Time: 20:15 Performed by:: JOSEPH WATTS Procedure: The patient was placed in a sitting position on the OR table and monitors applied. A timeout was performed immediately prior to the start of the procedure. The patient was Prepped and draped in a sterile fashion and the skin was localized with 3 mL 1% lidocaine at L[4]-L[5] interspace. An introducer was placed into the back between L4-L5 and a 25g spinal needle was advanced into the intrathecal space until clear, free flowing CSF was observed. 1.8cc of 0.75% hyperbaric bupivacaine + 0.5mcg Precedex was injected into the intrathecal space and the spinal needle was removed. The patient tolerated the procedure well and there were no immediate complications noted.
--- NOTE | 2022-04-23 00:12 | Progress Note ---
Regional Anesthesia Block - Regional Anesthesia Block Start Time: 23:16 Stop Time: 23:22 Performed By:: JOSEPH WATTS Procedure: During the pre-op interview the patient agreed to and signed a consent for a TAP block for post surgical pain management. After her C/S was completed a time out was performed prior to the start of the procedure. The Trans Abdominal Plane was identified bilaterally via ultrasound. The skin was prepped bilaterally with chlorhexidine and a 22g stimuplex needle was advanced to the area between the internal oblique muscle and the trans abdominal plane. Marcaine 0.25% 30mlwas injected under ultrasound guidance on the left and right side. Negative aspiration every 5mL, There was no change in the patients heart rate or rhythm and the patient tolerated the procedure well. No apparent complications were observed.
[2022-04-23] MEDS ORDERED: fentaNYL-BUPIV 2 MCG/ML-0.125% 200 MCG/100 ML BAG EPIDURAL SCH (01:00)
[2022-04-23 01:22] LABS: Hematocrit 32.1 % (30.3-42.9); Hemoglobin 10.7 gm/dl (10.1-14.3)
[2022-04-23] MEDS ORDERED: MORPHINE 2 MG/1 ML INJ IV PRN (01:53)
[2022-04-23] MEDS ORDERED: WITCH HAZEL/ GLYCERIN PAD TP PRN (01:53)
[2022-04-23] MEDS ORDERED: KETOROLAC 30 MG/1 ML INJ IV PRN (01:53)
[2022-04-23] MEDS ORDERED: SIMETHICONE 80 MG CHEW TAB PO PRN (01:53)
[2022-04-23] MEDS ORDERED: MAGNESIUM HYDROXIDE (MOM) ORAL LIQD UDC PO PRN (01:53)
[2022-04-23] MEDS ORDERED: LANOLIN/ZINC/DIMETHICONE (LANSINOH) 7 GM TP PRN (01:53)
[2022-04-23] MEDS ORDERED: OXYTOCIN DRIP 30 UNITS/500 ML BAG IV SCH (01:53)
[2022-04-23] MEDS ORDERED: IBUPROFEN 800 MG TAB PO PRN (01:53)
[2022-04-23] MEDS: D5W/LACTATED RINGERS 1,000 ML IV SCH ×2 (02:38→11:26)
[2022-04-23] MEDS: ceFAZolin/NS 1 GM/50 ML 1 GM/50 ML BAG IV SCH ×2 (06:36→14:27)
[2022-04-23] MEDS: oxyCODONE /ACETAMINOPHEN 5-325MG TAB PO PRN ×3 (07:04→19:51)
--- NOTE | 2022-04-23 07:57 | Progress Note ---
Assessment and Plan - Patient Problems (1) delivery delivered Current Visit: No Status: Acute Plan to address problem: Supportive grief care Routine postoperative care (2) premature rupture of membranes Current Visit: No Status: Acute Subjective - Subjective Date of service: 04/23/22 Interval history: Patient is postop day 1 status post a repeat delivery and tubal ligation for a delivery at 23 weeks secondary to PPROM and vaginal bleeding. This a.m. the patient reports her pain is controlled. She is tearful but appropriate for the current situation. She is tolerating her clear diet without complication. A Abad is still in place at this point. Patient reports: appetite normal, pain well controlled [place]: Objective - Vital Signs Latest vital signs: Vital Signs Temp Pulse Resp BP BP Pulse Ox Pulse Ox 04/23/22 07:04 18 04/23/22 04:03 97.9 F 80 20 97/56 95 04/23/22 02:38 18 97 04/23/22 00:50 98.0 F 81 18 107/61 96 96 04/22/22 23:40 80 16 113/50 93 04/22/22 23:35 79 14 99/51 94 04/22/22 23:30 82 16 110/50 90 04/22/22 23:26 83 17 96/54 92 04/22/22 23:20 81 16 100/37 93 04/22/22 23:13 95 H 16 96/47 99 04/22/22 23:10 98.3 F 04/22/22 19:57 102 H 94 04/22/22 19:56 93 H 96 04/22/22 19:51 101 H 96 04/22/22 19:50 96 H 94 04/22/22 19:46 97 H 96 04/22/22 19:42 92 H 94 04/22/22 19:41 92 H 94 04/22/22 19:36 101 H 95 04/22/22 19:35 100 H 94 04/22/22 19:31 97 H 95 04/22/22 19:29 93 H 94 04/22/22 19:26 92 H 97 04/22/22 19:24 97 H 94 04/22/22 19:21 98 H 96 04/22/22 19:16 99 H 97 04/22/22 19:15 98 H 94 04/22/22 19:11 93 H 97 04/22/22 19:07 93 H 94 04/22/22 19:06 94 H 95 04/22/22 19:01 97 H 95 04/22/22 19:00 98 04/22/22 18:56 98 H 94 04/22/22 18:53 95 H 93 04/22/22 18:51 97 H 90 04/22/22 18:50 96 H 108/55 04/22/22 18:46 94 H 92 Intake and Output 04/22/22 04/23/22 04/23/22 22:59 06:59 14:59 Intake Total 1999 840 Output Total 300 1200 Balance 1700 -360 Intake: IV 2000 500 Oral 100 Intake, Free Water 240 Output: Urine 300 1200 Indwelling Catheter 600 Uretheral (Abad) 600 Other: Total, Intake Amount 100 Total, Output Amount 400 Weight 93.44 kg - Exam Incision: Present: dressed - Labs Labs: Abnormal lab results 04/22/22 04/22/22 Range/Units 18:35 18:35 WBC 15.3 H (4.5-11.0) K/mm3 Seg Neuts % (Manual) 98.0 H (40.0-70.0) % Lymphocytes % (Manual) 1.0 L (13.4-35.0) % Seg Neutrophils # Man 15.0 H (1.8-7.7) K/mm3 Lymphocytes # (Manual) 0.2 L (1.2-5.4) K/mm3 Crossmatch See Detail
[2022-04-23] MEDS ORDERED: PRENATAL VIT27-FE FUMARATE-FOLIC ACID VIT TAB PO SCH (10:00)
[2022-04-23] MEDS: FERROUS SULFATE 325 MG TAB PO SCH (11:26)
--- NOTE | 2022-04-23 13:12 | Post Anesthesia Evaluation ---
- Post Anesthesia Evaluation Patient Participated: Yes Airway Patent: Yes Stable Respiratory Function: Yes Nausea/Vomiting: No Temp > 96.8F: Yes Pain Manageable: Yes Adequeate Hydration: Yes Anesthesia Complications: No Block Receding Appropriately: Yes Patient on Ventilator: No
[2022-04-23 13:31] LABS: Hematocrit 31.5 % (30.3-42.9); Hemoglobin 10.4 gm/dl (10.1-14.3)
[2022-04-23] MEDS ORDERED: MEASLES, MUMPS & RUBELLA 12,500 UNIT/0.5 ML VACCINE SUB-Q ONE (23:17)
[2022-04-24] MEDS: oxyCODONE /ACETAMINOPHEN 5-325MG TAB PO PRN (05:58)
[2022-04-24] MEDS ORDERED: TETANUS,DIPH,PERTUSS(ACELL) VACCINE 0.5 ML SYRINGE IM ONE (06:00)
--- NOTE | 2022-04-24 08:19 | Progress Note ---
Assessment and Plan A: POD#2 s/p repeat classical with tubal ligation at 23w1d PPROM since 04/04 or 04/05, s/p latency antibiotics; Prolonged ROM Rescue Cerclage in place, placed 04/02/22 Vaginal Bleeding concerning for placental abruption AMA Morbid Obesity Gestational Diabetes h/o PPROM and delivery Previous x 3 h/o gastric sleeve Intermediate allele for fragile x syndrome P: Routine postoperative care Begin bowel regimen Discharge later today Follow-up in the office in 1 week P: Subjective - Subjective Date of service: 04/24/22 Principal diagnosis: s/p repeat , Interval history: Pt feels well today. She reports voiding without difficulty her pain is well controlled and she is passing flatus. She has not yet had a bowel movement. She would like to go home later today. Patient reports: appetite normal, voiding normally, pain well controlled, flatus, ambulating normally, no bowel movement : Objective - Vital Signs Latest vital signs: Vital Signs Temp Pulse Resp BP BP Pulse Ox Pulse Ox 04/24/22 06:58 18 04/24/22 05:58 18 04/24/22 04:21 98.0 F 83 18 100/50 97 04/24/22 00:09 97.7 F 72 18 82/44 98 04/23/22 20:12 98.1 F 78 18 99/47 97 04/23/22 19:51 20 100 04/23/22 16:33 97.9 F 85 20 100/45 99 04/23/22 12:05 97.9 F 82 20 99/45 99 04/23/22 08:50 98.5 F 76 20 90/42 97 04/23/22 08:23 98 Intake and Output 04/23/22 04/24/22 04/24/22 22:59 06:59 14:59 Intake Total 480 420 Output Total 1100 Balance -620 420 Intake: Oral 480 Intake, Free Water 420 Output: Urine 1100 Void 1100 Other: Total, Intake Amount 120 Total, Output Amount 500 # Voids Void 1 1 - Exam Breasts: Present: deferred Abdomen: Present: soft, distention (mild ) Uterus: Present: fundal height below umbilicus Extremities: Present: edema (trace) Incision: Present: dressed
--- NOTE | 2022-04-24 08:23 | Discharge Summary ---
Providers - Providers Date of Admission: 04/22/22 17:24 Date of discharge: 04/24/22 Attending physician: MALIKA REAGAN 04/23/22 01:53 Consult to Director Of Solutions Architecture [CONS] Routine Reason For Exam: Primary care physician: MALIKA REAGAN Hospitalization Reason for admission: vaginal bleeding Delivery: Procedure: bilateral tubal ligation, other (repeat classical section ) Procedure details: Please see operative report Incision: intact Other procedures: none complications: none Discharge diagnosis: other Hospital course: This patient was admitted for at 23 weeks for regular painful contractions and vaginal bleeding concerning for placental abruption in the setting of prolonged rupture of membranes and PPROM. She underwent a repeat classical section with bilateral tubal ligation which she tolerated well. The surgery was complicated by intraoperative hemorrhage. The hours after delivery. Please see neonatology notes for details. The patient's postoperative course was uncomplicated and she met discharge criteria by postoperative day #2. She will follow-up in the office in [address] Reagan. Condition at discharge: Stable Disposition: 01 HOME / SELF CARE / HOMELESS - Discharge Diagnoses (1) Delivery by classical section Status: Acute (2) Morbid obesity Status: Acute (3) AMA (advanced maternal age) multigravida 35+ Status: Acute Qualifiers: Trimester: second trimester Qualified Code(s): O09.522 - Supervision of elderly multigravida, second trimester (4) Vaginal bleeding Status: Acute (5) Malpresentation of fetus Status: Acute Qualifiers: malpresentation type: breech Fetus number: single or unspecified fetus Qualified Code(s): O32.1XX0 - Maternal care for breech presentation, not applicable or unspecified (6) Gestational diabetes Status: Acute Qualifiers: Gestational diabetes mellitus control: diet-controlled Trimester: second trimester Qualified Code(s): O24.410 - Gestational diabetes mellitus in , diet controlled (7) Prolonged rupture of membranes Status: Acute (8) delivery delivered Status: Acute (9) premature rupture of membranes Status: Acute Qualifiers: PROM onset of labor timing: onset of labor more than 24 hours following rupture Qualified Code(s): O42.119 - premature rupture of membranes, onset of labor more than 24 hours following rupture, unspecified trimester Plan - Discharge Medications Prescriptions: Ferrous Sulfate [Feosol 325 MG tab] 325 mg PO BID #60 tablet Ibuprofen [Motrin] 800 mg PO Q8HR PRN #30 tablet PRN Reason: Pain, Moderate (4-6) oxyCODONE /ACETAMINOPHEN [Percocet 5/325] 1 tab PO Q6HR PRN #30 tablet PRN Reason: Pain - Provider Discharge Summary Activity: routine, no sex for 6 weeks, no heavy lifting 4 weeks, no strenuous exercise Diet: routine Instructions: routine Additional instructions: [] Smoking cessation referral if applicable(refer to patient education folder for contact #) [] Refer to [facility] Booklet Call your doctor immediately for: * Fever > 100.5 * Heavy vaginal bleeding ( >1 pad per hour) * Severe persistent headache * Shortness of breath * Reddened, hot, painful area to leg or breast * Drainage or odor from incision. * Keep incision clean and dry at all times and follow doctor's instructions regarding bathing/showering - Follow up plan Follow up: MALIKA REAGAN MD [Primary Care Provider] - 7 Days
[2022-04-24] MEDS ORDERED: LACTULOSE 20 GM/30 ML ORAL LIQD PO SCH (09:00)
[2022-04-24] MEDS: FERROUS SULFATE 325 MG TAB PO SCH (10:03)
[2022-04-24 16:38] VITALS: BP 111/63
[2022-04-24] MEDS ORDERED: ERYTHROMYCIN BASE 250 MG CAPSULE DR PO SCH (22:00)
[2022-04-24] MEDS ORDERED: AMOXICILLIN 250 MG CAP PO SCH (22:00)
== END 2022-04-24 16:12 | disposition home or self-care (01) | DRG 765 ==
LOC: TRG 17:01 → APU 17:03 → LD 17:24 → TRG 17:47 → OB 04-23 01:52
PROVIDERS: ADMIT Obstetrics & Gynecology; ATTEND Obstetrics & Gynecology
PROC: 10D00Z0 Extraction of Products of Conception, High, Open Approach (ICD-10-PCS; principal; 2022-04-22)
PROC: 0UL70CZ Occlusion of Bilateral Fallopian Tubes with Extraluminal Device, Open Approach (ICD-10-PCS; 2022-04-22)
PROC: 3E0T3BZ Introduction of Anesthetic Agent into Peripheral Nerves and Plexi, Percutaneous Approach (ICD-10-PCS; 2022-04-22)
PROC: 3E0234Z Introduction of Serum, Toxoid and Vaccine into Muscle, Percutaneous Approach (ICD-10-PCS; 2022-04-23)
DX: O42.912 Preterm premature rupture of membranes, unspecified as to length of time between rupture and onset of labor, second trimester (principal); O60.12X0 Preterm labor second trimester with preterm delivery second trimester, not applicable or unspecified; O45.92 Premature separation of placenta, unspecified, second trimester; O34.211 Maternal care for low transverse scar from previous cesarean delivery; Z20.822 Contact with and (suspected) exposure to COVID-19; O32.1XX0 Maternal care for breech presentation, not applicable or unspecified; Z3A.23 23 weeks gestation of pregnancy; Z37.0 Single live birth; E66.01 Morbid (severe) obesity due to excess calories; O99.214 Obesity complicating childbirth; O41.02X0 Oligohydramnios, second trimester, not applicable or unspecified; O24.429 Gestational diabetes mellitus in childbirth, unspecified control; O99.62 Diseases of the digestive system complicating childbirth; K66.0 Peritoneal adhesions (postprocedural) (postinfection); Z82.49 Family history of ischemic heart disease and other diseases of the circulatory system; Z23 Encounter for immunization; Z30.2 Encounter for sterilization
CPT/HCPCS: 36415; 76815; 85007; 85014; 85018; 85025; 86850; 86900; 86901; 86920; 88305; G0378; J3490; J7060; J0690; J0702; J1885; J2250; J2405; J3010; J7120; J7121; U0003

== ENCOUNTER 2022-04-25 09:16 | Inpatient (IN) | payer MEDICAID ==
[2022-04-25] MEDS ORDERED: SODIUM CHLORIDE 0.9% 500 ML 500 ML IV ONE (09:44)
[2022-04-25 10:52] LABS: Basophils # (Auto) 0.1 K/mm3 (0.0-0.1); Basophils % (Auto) 0.7 % (0.0-1.8); Eosinophils % (Auto) 0.1 % (0.0-4.3); Hematocrit 30.9 % (30.3-42.9); Hemoglobin 10.3 gm/dl (10.1-14.3); Lymphocytes # (Auto) 0.7 K/mm3 (1.2-5.4); Lymphocytes % (Auto) 6.8 % (13.4-35.0); Mean Corpuscular HGB Conc 34 % (30-34); Mean Corpuscular Volume 94 fl (79-97); Monocytes # (Auto) 0.6 K/mm3 (0.0-0.8); Platelet Count 190 K/mm3 (140-440); Red Blood Count 3.29 M/mm3 (3.65-5.03); Red Cell Distribution Width 14.1 % (13.2-15.2)
--- NOTE | 2022-04-25 11:00 | XRay Report ---
CHEST 2 VIEWS INDICATION: possible Sepsis. COMPARISON: None. FINDINGS: Support devices: None. Heart: Within normal limits. Lungs/Pleura: No acute air space or interstitial disease. No significant pleural effusion. IMPRESSION: No acute findings. Signer Name: Juve Frausto MD Signed: 04/25/2022 10:55 AM Workstation Name: [employer]
[2022-04-25 11:07] LABS: INR 0.98 (0.87-1.13)
[2022-04-25 11:10] LABS: Alanine Aminotransferase 15 units/L (7-56); Albumin 3.5 g/dL (3.9-5); Blood Urea Nitrogen 7 mg/dL (7-17); Calcium 7.8 mg/dL (8.4-10.2); Hemolysis Index 34
[2022-04-25 11:12] LABS: BUN/Creatinine Ratio 18
[2022-04-25 14:34] LABS: Color,Urine Straw (Yellow)
[2022-04-25] MEDS ORDERED: ACETAMINOPHEN 325 MG TAB PO ONE (15:51)
[2022-04-25] MEDS ORDERED: SODIUM CHLORIDE 0.9% 1000 ML 1,000 ML IV ONE ×2 (16:20→19:00)
[2022-04-25] MEDS ORDERED: ONDANSETRON 4 MG/2 ML INJ IV ONE (16:20)
[2022-04-25] MEDS ORDERED: MORPHINE 4 MG/1 ML INJ IV ONE (16:20)
--- NOTE | 2022-04-25 16:28 | Emergency Department Report ---
ED Fever HPI - General Chief Complaint: Fever Stated Complaint: ON 04/22 FEVER/DIZZY Time Seen by Provider: 04/25/22 15:41 Source: patient, old records Exam Limitations: no limitations - History of Present Illness Initial Comments: 42-year-old female presents with fever. Status post delivery at 23 weeks gestation April 22. As per medical record record she had a h/o PPROM at 21 wks status post latency antibiotics, prolonged rupture of membranes, rescue cerclage in situ, previous x 3, gastric sleeve surgery, advanced maternal age, morbid obesity, malpresentation presents with heavy vaginal bleeding and regular painful contractions requiring emergent C- section. Patient also received a tubal ligation and lysis of omental adhesion during surgery. As per medical record GBS status was unknown at time of delivery. Patient was discharged yesterday. She reports that last night she had rigors with a oral temp of 102.7. Patient complains of occasional cough with sputum but denies shortness of breath and wound pain but denies other abdominal pain, chest pain, shortness of breath, headache, nausea, vomiting, or dysuria. ED Review of Systems ROS: Stated complaint: ON 04/22 FEVER/DIZZY Other details as noted in HPI Comment: All other systems reviewed and negative ED Past Medical Hx - Past Medical History Hx Hypertension: No Hx Heart Attack/AMI: No Hx Diabetes: No Hx Deep Vein Thrombosis: No Hx Liver Disease: No Hx Renal Disease: No Hx Sickle Cell Disease: No Hx Seizures: No Hx Asthma: No Hx COPD: No Hx HIV: No - Surgical History Hx Pacemaker: No Hx Internal Defibrillator: No Hx Cholecystectomy: Yes Additional Surgical History: x4, gastric sleeve, tubal ligation - Social History Smoking Status: Never Smoker Substance Use Type: None - Medications Home Medications: Home Medications Medication Instructions Recorded Confirmed Last Taken Type Vit-Fe Fumar-FA [ 1 tab PO DAILY 10/20/20 04/23/22 Unknown History Vitamin] Ibuprofen [Motrin] 800 mg PO Q8HR PRN #60 tablet 10/22/20 04/23/22 Unknown Rx oxyCODONE /ACETAMINOPHEN [Percocet 1 tab PO Q6HR PRN #30 tablet 10/22/20 04/23/22 Unknown Rx 5/325] Amoxicillin [Trimox CAP] 500 mg PO Q8H #21 capsule 04/11/22 04/23/22 Unknown Rx Erythromycin Base [Erythromycin 250 mg PO Q8H #21 04/11/22 04/23/[address] Rx 250MG CAP DR] Ferrous Sulfate [Feosol 325 MG tab] 325 mg PO BID #60 tablet 04/24/22 Unknown Rx Ibuprofen [Motrin] 800 mg PO Q8HR PRN #30 tablet 04/24/22 Unknown Rx oxyCODONE /ACETAMINOPHEN [Percocet 1 tab PO Q6HR PRN #30 tablet 04/24/22 Unknown Rx 5/325] ED Physical Exam - General Limitations: No Limitations - Other Other exam information: General: No acute distress Head: Atraumatic Eyes: normal appearance ENT: Moist mucous membranes Neck: Normal appearance, no midline tenderness Chest: Clear to auscultation bilaterally CV: Regular rate and rhythm Abdomen: Soft, normal bowel sounds, mild suprapubic tenderness nondistended, no rebound or guarding Back: Normal inspection Extremity: Normal inspection, full range of motion Neuro: Alert O x 3, no facial asymmetry, speech clear, no gross motor sensory deficit Psych: Appropriate behavior Skin: Suprapubic scar noted with Steri-Strips which is moist. Patient states that she did take a shower prior to ED arrival. I am not able to express purulent drainage from wounds. No erythema. No significant bone tenderness ED Course Vital Signs 04/25/22 04/25/22 04/25/22 09:36 15:32 16:38 Temperature 100.1 F H 99.9 F H 99.8 F H Pulse Rate 120 H 104 H 98 H Respiratory 28 H 22 18 Rate Blood Pressure 135/69 Blood Pressure 112/61 135/69 110/55 [Left] O2 Sat by Pulse 98 97 97 Oximetry 04/25/22 04/25/22 04/25/22 18:15 19:00 19:35 Temperature 98.4 F 98.5 F Pulse Rate 98 H 84 82 Respiratory 18 14 19 Rate Blood Pressure 104/56 Blood Pressure 105/62 87/43 [Left] O2 Sat by Pulse 96 97 97 Oximetry 04/25/22 04/25/22 04/25/22 19:36 20:01 20:31 Temperature Pulse Rate 83 79 88 Respiratory 21 17 19 Rate Blood Pressure 105/62 93/46 112/55 Blood Pressure [Left] O2 Sat by Pulse 96 97 99 Oximetry 04/25/22 21:01 Temperature Pulse Rate 83 Respiratory 18 Rate Blood Pressure 101/62 Blood Pressure [Left] O2 Sat by Pulse 97 Oximetry - Consultations Consultation #1: 04/25/22 18:48 I have been waiting [address] Micheal Marshall to return call. She called back at this time to state that she is out of town and she has not covering Dr. Reagan. We will call the answering service back to try to contact the appropriate physician lead mason tender for Dr. Dalia Reagan. Answering service states they do not know who is on-call will escalate this to their mailroom supervisor 04/25/22 18:58 I was able to get a hold of Dr. Dalia Reagan via cell phone. She states Dr. Michael is on-call. She recommends admitting the patient and will place admission orders. 04/25/22 19:[address] Casey at this time. She agrees to admit patient. ED Medical Decision Making - Lab Data Result diagrams: 04/25/22 09:50 04/25/22 09:50 Lab Results 04/25/22 04/25/22 04/25/22 Range/Units 09:50 09:50 09:50 WBC 10.4 (4.5-11.0) K/mm3 RBC 3.29 L (3.65-5.03) M/mm3 Hgb 10.3 (10.1-14.3) gm/dl Hct 30.9 (30.3-42.9) % MCV 94 (79-97) fl MCH 31 (28-32) pg MCHC 34 (30-34) % RDW 14.1 (13.2-15.2) % Plt Count 190 (140-440) K/mm3 Lymph % (Auto) 6.8 L (13.4-35.0) % [place] % (Auto) 6.0 (0.0-7.3) % Eos % (Auto) 0.1 (0.0-4.3) % Baso % (Auto) 0.7 (0.0-1.8) % Lymph # (Auto) 0.7 L (1.2-5.4) K/mm3 [place] # (Auto) 0.6 (0.0-0.8) K/mm3 Eos # (Auto) 0.0 (0.0-0.4) K/mm3 Baso # (Auto) 0.1 (0.0-0.1) K/mm3 Seg Neutrophils % 86.4 H (40.0-70.0) % Seg Neutrophils # 8.9 H (1.8-7.7) K/mm3 PT 14.1 (12.2-14.9) Sec. INR 0.98 (0.87-1.13) VBG pH (7.320-7.420) Sodium 139 (137-145) mmol/L Potassium 3.5 L (3.6-5.0) mmol/L Chloride 100.9 (98-107) mmol/L Carbon Dioxide 22 (22-30) mmol/L Anion Gap 20 mmol/L BUN 7 (7-17) mg/dL Creatinine 0.4 L (0.6-1.2) mg/dL Estimated GFR > 60 ml/min BUN/Creatinine Ratio 18 % Glucose 93 (65-100) mg/dL Lactic Acid (0.7-2.0) mmol/L Calcium 7.8 L (8.4-10.2) mg/dL Total Bilirubin 0.40 (0.1-1.2) mg/dL AST 28 (5-40) units/L ALT 15 (7-56) units/L Alkaline Phosphatase 110 (35-129) units/L Total Protein 6.1 L (6.3-8.2) g/dL Albumin 3.5 L (3.9-5) g/dL Albumin/Globulin Ratio 1.3 % Urine Color (Yellow) Urine Turbidity (Clear) Specific [place] (Man) (1.003-1.030) Ur Protein (Man) (Negative) mg/dL Ur Ketones (Man) (Negative) Ur Nitrite (Man) (Negative) Ur Reducing Substances Urine Bilirubin (Man) (Negative) Urine Ictotest Leukocyte Esterase (Man) (Negative) Urine WBC (Auto) (0.0-6.0) /HPF Urine RBC (Auto) (0.0-6.0) /HPF U Epithel Cells (Auto) (0-13.0) /HPF Urine RBC (Manual) (Negative) 04/25/22 04/25/22 04/25/22 Range/Units 09:50 09:50 13:31 WBC (4.5-11.0) K/mm3 RBC (3.65-5.03) M/mm3 Hgb (10.1-14.3) gm/dl Hct (30.3-42.9) % MCV (79-97) fl MCH (28-32) pg MCHC (30-34) % RDW (13.2-15.2) % Plt Count (140-440) K/mm3 Lymph % (Auto) (13.4-35.0) % [place] % (Auto) (0.0-7.3) % Eos % (Auto) (0.0-4.3) % Baso % (Auto) (0.0-1.8) % Lymph # (Auto) (1.2-5.4) K/mm3 [place] # (Auto) (0.0-0.8) K/mm3 Eos # (Auto) (0.0-0.4) K/mm3 Baso # (Auto) (0.0-0.1) K/mm3 Seg Neutrophils % (40.0-70.0) % Seg Neutrophils # (1.8-7.7) K/mm3 PT (12.2-14.9) Sec. INR (0.87-1.13) VBG pH 7.456 H (7.320-7.420) Sodium (137-145) mmol/L Potassium (3.6-5.0) mmol/L Chloride (98-107) mmol/L Carbon Dioxide (22-30) mmol/L Anion Gap mmol/L BUN (7-17) mg/dL Creatinine (0.6-1.2) mg/dL Estimated GFR ml/min BUN/Creatinine Ratio % Glucose (65-100) mg/dL Lactic Acid 1.40 (0.7-2.0) mmol/L Calcium (8.4-10.2) mg/dL Total Bilirubin (0.1-1.2) mg/dL AST (5-40) units/L ALT (7-56) units/L Alkaline Phosphatase (35-129) units/L Total Protein (6.3-8.2) g/dL Albumin (3.9-5) g/dL Albumin/Globulin Ratio % Urine Color Straw (Yellow) Urine Turbidity Clear (Clear) Specific [place] (Man) 1.010 (1.003-1.030) Ur Protein (Man) <30 mg dl (Negative) mg/dL Ur Ketones (Man) Negative (Negative) Ur Nitrite (Man) Negative (Negative) Ur Reducing Substances Not Reportable Urine Bilirubin (Man) Negative (Negative) Urine Ictotest Not Reportable Leukocyte Esterase (Man) Negative (Negative) Urine WBC (Auto) 4.0 (0.0-6.0) /HPF Urine RBC (Auto) 7.0 (0.0-6.0) /HPF U Epithel Cells (Auto) 1.0 (0-13.0) /HPF Urine RBC (Manual) 3+ (Negative) 04/25/22 Range/Units 16:33 WBC (4.5-11.0) K/mm3 RBC (3.65-5.03) M/mm3 Hgb (10.1-14.3) gm/dl Hct (30.3-42.9) % MCV (79-97) fl MCH (28-32) pg MCHC (30-34) % RDW (13.2-15.2) % Plt Count (140-440) K/mm3 Lymph % (Auto) (13.4-35.0) % [place] % (Auto) (0.0-7.3) % Eos % (Auto) (0.0-4.3) % Baso % (Auto) (0.0-1.8) % Lymph # (Auto) (1.2-5.4) K/mm3 [place] # (Auto) (0.0-0.8) K/mm3 Eos # (Auto) (0.0-0.4) K/mm3 Baso # (Auto) (0.0-0.1) K/mm3 Seg Neutrophils % (40.0-70.0) % Seg Neutrophils # (1.8-7.7) K/mm3 PT (12.2-14.9) Sec. INR (0.87-1.13) VBG pH (7.320-7.420) Sodium (137-145) mmol/L Potassium (3.6-5.0) mmol/L Chloride (98-107) mmol/L Carbon Dioxide (22-30) mmol/L Anion Gap mmol/L BUN (7-17) mg/dL Creatinine (0.6-1.2) mg/dL Estimated GFR ml/min BUN/Creatinine Ratio % Glucose (65-100) mg/dL Lactic Acid 1.00 (0.7-2.0) mmol/L Calcium (8.4-10.2) mg/dL Total Bilirubin (0.1-1.2) mg/dL AST (5-40) units/L ALT (7-56) units/L Alkaline Phosphatase (35-129) units/L Total Protein (6.3-8.2) g/dL Albumin (3.9-5) g/dL Albumin/Globulin Ratio % Urine Color (Yellow) Urine Turbidity (Clear) Specific [place] (Man) (1.003-1.030) Ur Protein (Man) (Negative) mg/dL Ur Ketones (Man) (Negative) Ur Nitrite (Man) (Negative) Ur Reducing Substances Urine Bilirubin (Man) (Negative) Urine Ictotest Leukocyte Esterase (Man) (Negative) Urine WBC (Auto) (0.0-6.0) /HPF Urine RBC (Auto) (0.0-6.0) /HPF U Epithel Cells (Auto) (0-13.0) /HPF Urine RBC (Manual) (Negative) - EKG Data -: EKG Interpreted by Pr EKG shows normal: sinus rhythm, ST-T waves (No STEMI) Rate: tachycardia - Radiology Data Radiology results: report reviewed CHEST 2 VIEWS INDICATION: possible Sepsis. COMPARISON: None. FINDINGS: Support devices: None. Heart: Within normal limits. Lungs/Pleura: No acute air space or interstitial disease. No significant pleural effusion. IMPRESSION: No acute findings. CT ABDOMEN AND PELVIS WITH CONTRAST INDICATION / CLINICAL INFORMATION: s/p c section, fever 100ml of [id number]. TECHNIQUE: Axial CT images were obtained through the abdomen and pelvis after IV contrast. All CT scans at this location are performed using CT dose reduction for ALARA by means of automated exposure control. COMPARISON: None available. FINDINGS: LOWER CHEST: No significant abnormality. LIVER: No significant abnormality. GALLBLADDER/BILIARY: Mild common bile duct dilation status post cholecystectomy, which most likely represents benign postoperative biliary ectasia. PANCREAS: No significant abnormality. SPLEEN: No significant abnormality. ADRENALS: No significant abnormality. KIDNEYS/URETERS: No urolithiasis, hydronephrosis, solid renal mass or other significant abnormality. GI: No acute bowel inflammation, obstruction or evidence for ischemia. Surgical change from prior sleeve gastrectomy. APPENDIX: Appendectomy. PERITONEUM: No pneumoperitoneum, free peritoneal fluid or loculated fluid collection. LYMPH NODES: No significant adenopathy. AORTA / ARTERIES: No significant abnormality. URINARY BLADDER: No significant abnormality. REPRODUCTIVE ORGANS: The uterus is expectedly enlarged with surgical changes from prior recent hysterectomy. Small amount of residual endometrial gas is present without suspicious hemorrhage or abnormal enhancement. Small amount of ventral subcutaneous gas and edema. No postoperative fluid collection. SKELETAL SYSTEM: No acute or destructive osseous process. ADDITIONAL FINDINGS: None. IMPRESSION: 1. Surgical change from recent with expected uterine enlargement and mild endometrial gas. No abscess or other specific etiology for fever is identified, but correlation is needed to exclude endometritis. 2. Other mild chronic and postoperative incidental findings, as detailed above. - Medical Decision Making 42-year-old female presents for fever status post and history of premature rupture of membranes with previous antibiotic coverage. Patient be admitted for suspected endometritis. No other source of infection has been identified at this time. Patient does not have findings of severe sepsis or septic shock. Patient states she feels much better with ED felicity atment.Treated with IV fluids, clindamycin, and gentamicin. Critical Care Time: No Critical care attestation.: If time is entered above; I have spent that time in minutes in the direct care of this critically ill patient, excluding procedure time. ED Disposition Clinical Impression: fever, Endometritis Disposition: ADMITTED INPATIENT Is pt being admited?: Yes Condition: Stable Time of Disposition: 18:59 (case d/w Dr Reagan and [facility].)
[2022-04-25] MEDS ORDERED: SODIUM CHLORIDE 0.9% IV ONE (16:32)
[2022-04-25] MEDS ORDERED: GENTAMICIN IV ONE (16:32)
--- NOTE | 2022-04-25 17:34 | Cat Scan Report ---
CT ABDOMEN AND PELVIS WITH CONTRAST INDICATION / CLINICAL INFORMATION: s/p c section, fever 100ml of [id number]. TECHNIQUE: Axial CT images were obtained through the abdomen and pelvis after IV contrast. All CT sc ans at this location are performed using CT dose reduction for ALARA by means of automated exposure c ontrol. COMPARISON: None available. FINDINGS: LOWER CHEST: No significant abnormality. LIVER: No significant abnormality. GALLBLADDER/BILIARY: Mild common bile duct dilation status post cholecystectomy, which most likely re presents benign postoperative biliary ectasia. PANCREAS: No significant abnormality. SPLEEN: No significant abnormality. ADRENALS: No significant abnormality. KIDNEYS/URETERS: No urolithiasis, hydronephrosis, solid renal mass or other significant abnormality. GI: No acute bowel inflammation, obstruction or evidence for ischemia. Surgical change from prior sle sonny gastrectomy. APPENDIX: Appendectomy. PERITONEUM: No pneumoperitoneum, free peritoneal fluid or loculated fluid collection. LYMPH NODES: No significant adenopathy. AORTA / ARTERIES: No significant abnormality. URINARY BLADDER: No significant abnormality. REPRODUCTIVE ORGANS: The uterus is expectedly enlarged with surgical changes from prior re cent hysterectomy. Small amount of residual endometrial gas is present without suspicious hemorrhage or abnormal enhancement. Small amount of ventral subcutaneous gas and edema. No postoperative fluid c ollection. SKELETAL SYSTEM: No acute or destructive osseous process. ADDITIONAL FINDINGS: None. IMPRESSION: 1. Surgical change from recent with expected uterine enlargement and mild endome trial gas. No abscess or other specific etiology for fever is identified, but correlation is needed t o exclude endometritis. 2. Other mild chronic and postoperative incidental findings, as detailed above. Signer Name: Dinesh Hernandez MD Signed: 04/25/2022 5:29 PM Workstation Name: [id number]
[2022-04-25] MEDS ORDERED: ONDANSETRON 4 MG/2 ML INJ IV PRN (20:36)
[2022-04-25] MEDS ORDERED: ACETAMINOPHEN 325 MG TAB PO PRN ×2 (20:36→20:39)
[2022-04-25] MEDS ORDERED: MORPHINE 2 MG/1 ML INJ IV PRN (20:37)
[2022-04-25] MEDS ORDERED: KETOROLAC 30 MG/1 ML INJ IV PRN (20:39)
[2022-04-25] MEDS ORDERED: WITCH HAZEL/ GLYCERIN PAD TP PRN (20:39)
[2022-04-25] MEDS ORDERED: NALOXONE 0.4 MG/1 ML INJ IV PRN (20:39)
[2022-04-25] MEDS ORDERED: LANOLIN/ZINC/DIMETHICONE (LANSINOH) 7 GM TP PRN (20:39)
[2022-04-25] MEDS ORDERED: IBUPROFEN 600 MG TAB PO PRN (20:39)
[2022-04-25] MEDS ORDERED: D5W/LACTATED RINGERS 1,000 ML IV SCH (21:00)
[2022-04-26] MEDS: PIPERACILLIN/TAZOBACTAM 3.375 3.375 GM/50 ML BAG IV SCH ×4 (00:55→23:44)
[2022-04-26] MEDS: oxyCODONE /ACETAMINOPHEN 5-325MG TAB PO PRN ×3 (01:15→21:07)
--- NOTE | 2022-04-26 07:48 | History and Physical Report ---
History of Present Illness Date of examination: 04/26/22 Date of admission: 04/25/22 20:37 Chief complaint: Fever History of present illness: 42-year-old -3-2-4 who is postop day #4 status post a repeat delivery for PPROM at 23 weeks which subsequently ended in a secondary to severe prematurity. Prior to her surgery the patient had been ruptured for 2 weeks and had presented with evidence of chorioamnionitis for which the decision was made to proceed with delivery. The patient represents today with a history of febrile morbidity and pain. Emergency room evaluation did not identify any evidence of abscess on her imaging. She is being admitted for presumed endometritis Past History Past Surgical History: section Social history: - Obstetrical History : 7 Para: 4 Hx # Term Pregnancies: 2 Number of Pregnancies: 3 Spontaneous Abortions: 3 Induced : 0 Number of Living Children: 4 Medications and Allergies Allergies Allergy/AdvReac Type Severity Reaction Status Date / Time No Known Allergies Allergy Verified 04/23/22 22:37 Home Medications Medication Instructions Recorded Confirmed Last Taken Type Vit-Fe Fumar-FA [ 1 tab PO DAILY 10/20/20 04/23/22 Unknown History Vitamin] Ibuprofen [Motrin] 800 mg PO Q8HR PRN #60 tablet 10/22/20 04/23/22 Unknown Rx oxyCODONE /ACETAMINOPHEN [Percocet 1 tab PO Q6HR PRN #30 tablet 10/22/20 04/23/22 Unknown Rx 5/325] Amoxicillin [Trimox CAP] 500 mg PO Q8H #21 capsule 04/11/22 04/23/22 Unknown Rx Erythromycin Base [Erythromycin 250 mg PO Q8H #21 04/11/22 04/23/[address] Unknown Rx 250MG CAP DR] Ferrous Sulfate [Feosol 325 MG tab] 325 mg PO BID #60 tablet 04/24/22 Unknown Rx Ibuprofen [Motrin] 800 mg PO Q8HR PRN #30 tablet 04/24/22 Unknown Rx oxyCODONE /ACETAMINOPHEN [Percocet 1 tab PO Q6HR PRN #30 tablet 04/24/22 Unknown Rx 5/325] Active Meds: Active Medications Acetaminophen (Acetaminophen 325 Mg Tab) 650 mg PO Q4H PRN PRN Reason: Pain MILD(1-3)/Fever >100.5/WU Acetaminophen (Acetaminophen 325 Mg Tab) 650 mg PO Q4H PRN PRN Reason: Fever >100.5/WU Dextrose/Lactated Ringer's (D5lr) 1,000 mls @ 125 mls/hr IV DIRECT JONATHAN Piperacillin Sod/Tazobactam Sod (Zosyn/Ns 3.375gm/50ml) 3.375 gm in 50 mls @ 100 mls/hr IV Q8H [facility]; Protocol Last Admin: 04/26/22 00:55 Dose: 100 mls/hr Ibuprofen (Ibuprofen 600 Mg Tab) 600 mg PO Q6H PRN PRN Reason: Pain, Mild (1-3) Ketorolac Tromethamine (Ketorolac 30 Mg/1 Ml Inj) 30 mg IV Q6H PRN PRN Reason: Pain, Moderate (4-6) Stop: 04/30/22 20:38 Morphine Sulfate (Morphine 2 Mg/1 Ml Inj) 2 mg IV Q4H PRN PRN Reason: Pain, Moderate (4-6) Multi-Ingredient Ointment (Lanolin/Zinc/Dimethicone (Lansinoh) 7 Gm) 1 applic TP PRN PRN PRN Reason: dryness/cracking Multivitamins/Iron/Calcium ( [id number] Fumarate-Folic Acid Vit Tab) 1 each PO QDAY [facility] Naloxone HCl (Naloxone 0.4 Mg/1 Ml Inj) 0.1 mg IV Q2MIN PRN PRN Reason: Res Rate </= 8 or 02 SAT < 92% Ondansetron HCl (Ondansetron 4 Mg/2 Ml Inj) 4 mg IV Q8H PRN PRN Reason: Nausea And Vomiting Oxycodone/Acetaminophen (Oxycodone /Acetaminophen 5-325mg Tab) 2 tab PO Q6H PRN PRN Reason: Pain, Moderate (4-6) Last Admin: 04/26/22 01:15 Dose: 2 tab Sodium Chloride (Sodium Chloride 0.9% 10 Ml Flush Syringe) 10 ml IV BID [facility] Last Admin: 04/25/22 22:09 Dose: 10 ml Sodium Chloride (Sodium Chloride 0.9% 10 Ml Flush Syringe) 10 ml IV PRN PRN PRN Reason: LINE FLUSH Sodium Chloride (Sodium Chloride 0.9% 10 Ml Flush Syringe) 10 ml IV PRN NR Stop: 04/26/22 20:59 Witch Sophie/Glycerin (Witch Sophie/ Glycerin Pad) 1 each TP PRN PRN PRN Reason: Hemorrhoids/cleansing/soothing Review of Systems Constitutional: fever, fatigue - Vital Signs Vital signs: Vital Signs Temp Pulse Resp BP Pulse Ox 100.1 F H 120 H 28 H 112/61 98 04/25/22 09:36 04/25/22 09:36 04/25/22 09:36 04/25/22 09:36 04/25/22 09:36 Temp Pulse Resp BP Pulse Ox 98.5 F 92 H 18 118/58 94 04/26/22 04:30 04/26/22 04:30 04/26/22 04:30 04/26/22 04:30 04/26/22 04:30 - Physical Exam Breasts: Positive: deferred Cardiovascular: Regular rate Lungs: Positive: Clear to auscultation Results Result Diagrams: 04/25/22 09:50 04/25/22 09:50 Abnormal lab results 04/25/22 04/25/22 04/25/22 Range/Units 09:50 09:50 09:50 RBC 3.29 L (3.65-5.03) M/mm3 Lymph % (Auto) 6.8 L (13.4-35.0) % Lymph # (Auto) 0.7 L (1.2-5.4) K/mm3 Seg Neutrophils % 86.4 H (40.0-70.0) % Seg Neutrophils # 8.9 H (1.8-7.7) K/mm3 VBG pH 7.456 H (7.320-7.420) Potassium 3.5 L (3.6-5.0) mmol/L Creatinine 0.4 L (0.6-1.2) mg/dL Calcium 7.8 L (8.4-10.2) mg/dL Total Protein 6.1 L (6.3-8.2) g/dL Albumin 3.5 L (3.9-5) g/dL All other labs normal. Assessment and Plan - Patient Problems (1) Endometritis Current Visit: Yes Status: Acute Plan to address problem: Admit for supportive care and IV antibiotics (2) fever Current Visit: Yes Status: Acute
[2022-04-26] MEDS: PRENATAL VIT27-FE FUMARATE-FOLIC ACID VIT TAB PO SCH (10:13)
[2022-04-27] MEDS: PIPERACILLIN/TAZOBACTAM 3.375 3.375 GM/50 ML BAG IV SCH ×3 (08:07→20:34)
[2022-04-27] MEDS: PRENATAL VIT27-FE FUMARATE-FOLIC ACID VIT TAB PO SCH (09:02)
--- NOTE | 2022-04-27 10:49 | Progress Note ---
Assessment and Plan - Patient Problems (1) Endometritis Current Visit: Yes Status: Acute Plan to address problem: Continue IV antibiotics Consider discharge home once patient is 24 hours afebrile (2) fever Current Visit: Yes Status: Acute Subjective - Subjective Date of service: 04/27/22 Interval history: The patient reports feeling better today. She is only complaining of a mild headache. She is tolerating a regular diet and her pain is well controlled. The patient experienced a temperature spike during the night of 101 F. She is currently receiving IV antibiotics. Patient reports: appetite normal, voiding normally, pain well controlled [place]: Objective - Vital Signs Latest vital signs: Vital Signs Temp Pulse Resp BP Pulse Ox 04/27/22 08:11 98.3 F 78 16 128/76 97 04/27/22 04:33 98.5 F 77 20 113/71 98 04/26/22 23:49 98.7 F 78 20 114/61 97 04/26/22 20:46 101.1 F H 92 H 20 113/62 96 04/26/22 16:34 97.9 F 85 20 120/63 97 04/26/22 12:22 98.3 F 86 20 115/66 96 Intake and Output 04/26/22 04/27/22 04/27/22 22:59 06:59 14:59 Intake Total 530 120 Balance 530 120 Intake: IV 50 ZOSYN/NS 3.375GM/50ML 3. 50 375 gm In 50 ml @ 100 mls /hr IV Q8H [facility] Rx#: [id number] Oral 480 120 Other: Total, Intake Amount 240 120 # Voids Void 1 1
[2022-04-28] MEDS: PIPERACILLIN/TAZOBACTAM 3.375 3.375 GM/50 ML BAG IV SCH ×2 (01:26→08:48)
[2022-04-28] MEDS: PRENATAL VIT27-FE FUMARATE-FOLIC ACID VIT TAB PO SCH (09:06)
--- NOTE | 2022-04-28 11:33 | Progress Note ---
Assessment and Plan A: POD # 7 readmission for endometritis- Now afebrile Had PPROM at 23wks with Repeat P: Discharge home today Keflex 500 mg po BID for 7 days Discharge instructions given Subjective - Subjective Date of service: 04/28/22 Principal diagnosis: readmission for Endometritis, POD #7 Interval history: I"m ready to go home, no complaints today Patient reports: appetite normal : other (23 weeks IUFD) Objective - Vital Signs Latest vital signs: Vital Signs Temp Pulse Resp BP Pulse Ox 04/28/22 08:34 100 04/28/22 08:17 97.5 F L 75 18 104/49 97 04/28/22 04:53 97.8 F 76 20 112/67 98 04/28/22 01:19 98.3 F 75 20 115/68 98 04/27/22 20:50 98.0 F 76 20 114/56 98 04/27/22 20:30 98 04/27/22 16:27 98.0 F 69 16 103/63 99 04/27/22 11:48 98.6 F 59 L 16 110/64 98 Intake and Output 04/27/22 04/28/22 04/28/22 22:59 06:59 14:59 Intake Total 290 410 Output Total 100 Balance 290 310 Intake: IV 50 50 ZOSYN/NS 3.375GM/50ML 3. 50 50 375 gm In 50 ml @ 100 mls /hr IV Q6H [facility] Rx#: [id number] Oral 240 120 Intake, Free Water 240 Output: Urine 100 Void 100 Other: Total, Intake Amount 240 120 Total, Output Amount 100 Voiding Method Toilet Toilet # Voids Void 1 2 - Exam Breasts: Present: deferred Cardiovascular: Present: Regular rate Lungs: Present: Clear to auscultation Abdomen: Present: soft Uterus: Present: fundal height below umbilicus Extremities: Present: normal Deep Tendon Reflex Grade: Normal +2 Incision: Present: intact
--- NOTE | 2022-04-28 11:41 | Discharge Summary ---
Providers - Providers Date of Admission: 04/25/22 20:37 Date of discharge: 04/28/22 Attending physician: KEVON HOBSON Primary care physician: JESSICA GOODWIN Hospitalization Reason for admission: other (endometritis Post operatively) Incision: intact Discharge diagnosis: other (Endometritis) Hospital course: IV antibiotics given Condition at discharge: Good Disposition: 01 HOME / SELF CARE / HOMELESS Plan - Discharge Medications Prescriptions: cephALEXin [Keflex] 500 mg PO Q12HR 7 Days #14 cap - Provider Discharge Summary Activity: routine, no sex for 6 weeks, no heavy lifting 4 weeks, no strenuous exercise Diet: routine Instructions: routine Additional instructions: [] Smoking cessation referral if applicable(refer to patient education folder for contact #) [] Refer to [facility] Booklet Call your doctor immediately for: * Fever > 100.5 * Heavy vaginal bleeding ( >1 pad per hour) * Severe persistent headache * Shortness of breath * Reddened, hot, painful area to leg or breast * Drainage or odor from incision. * Keep incision clean and dry at all times and follow doctor's instructions regarding bathing/showering - Follow up plan Follow up: JESSICA GOODWIN MD [Primary Care Provider] - 3-5 Days Forms: [facility] Discharge Summary
[2022-04-28 12:20] VITALS: BP 116/71
--- NOTE | 2022-04-28 16:41 | Electrocardiograph Report ---
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
== END 2022-04-28 12:56 | disposition home or self-care (01) | DRG 776 ==
LOC: ED 09:16 → OB 20:37
PROVIDERS: ADMIT Obstetrics & Gynecology; ATTEND Obstetrics & Gynecology
DX: O86.12 Endometritis following delivery (principal); Z20.822 Contact with and (suspected) exposure to COVID-19; Z98.51 Tubal ligation status; O86.4 Pyrexia of unknown origin following delivery
CPT/HCPCS: 36415; 71046; 74177; 80053; 81001; 82140; 82805; 85025; 85610; 87040; 87076; 87186; 93005; G0378; J7502; J1580; J2270; J2405; J2543; J7030; Q9967; U0003